=== PATIENT | male | born 1940 | race Caucasian/White ===

== ENCOUNTER 2016-12-10 09:56 | Observation (INO) | payer MEDICARE, BC ==
[2016-12-10] MEDS ORDERED: Indomethacin 50 MG Cap PO STA (10:44)
[2016-12-10] MEDS ORDERED: Ketorolac 30 MG/ML SDV IM ONE (10:45)
[2016-12-10] MEDS ORDERED: Indomethacin 25 MG Cap ONE ×2 (10:49→17:42)
--- NOTE | 2016-12-10 10:55 | EDM.PDOC ---
ED HPI GENERAL MEDICAL PROBLEM - General Chief Complaint: Upper Extremity Injury/Pain Stated Complaint: Right forearm and hand pain Time Seen by Provider: 12/10/16 10:30 Source of Information: Reports: Patient, Family History Limitations: Reports: No Limitations - History of Present Illness INITIAL COMMENTS - FREE TEXT/NARRATIVE: This is a 76yo M here for right forearm and wrist pain since yesterday. Patient states the pain has gotten worse. The pain started at a 3/10 yesterday and now a 7-8/10. Patient denies any prior right forearm or wrist pain and denies prior history of gout. Patient does have a history of CHF and DM with peripheral neuropathy. Patient denies any chest pain or sob. There is swelling of the right wrist and warmth. No fall or injury per patient. Onset: Gradual Duration: Day(s):, Getting Worse Location: Reports: Upper Extremity, Right Quality: Reports: Ache Severity: Moderate Improves with: Reports: None Worsens with: Reports: None Associated Symptoms: Reports: No Other Symptoms Right Arm Pain Score (Numeric/FACES): 8 - Related Data Allergies Allergy/AdvReac Type Severity Reaction Status Date / Time morphine Allergy Intermediate Other Verified 12/10/16 10:40 Home Meds: Home Meds Ramipril 10 mg PO DAILY 03/04/16 [History] Simvastatin 20 mg PO QPM 03/04/16 [History] Isosorbide Mononitrate [Imdur] 30 mg PO DAILY tab.er 03/10/16 [Rx] Aspirin [Halfprin] 81 mg PO DAILY 03/24/16 [History] Furosemide [Lasix] 80 mg PO DAILY 04/24/16 [History] Carvedilol [Carvedilol] 12.5 mg PO BIDMEALS 12/10/16 [History] Furosemide [Furosemide] 40 mg PO DAILY@1600 12/10/16 [History] Metolazone [Metolazone] 2.5 mg PO ASDIRECTED 12/10/16 [History] Potassium Chloride [Klor-Con M20] 40 meq PO DAILY 12/10/16 [History] Potassium Chloride [Klor-Con M20] 60 meq PO QPM 12/10/16 [History] Past Medical History HEENT History: Reports: Cataract Cardiovascular History: Reports: CAD, Heart Failure, Stents Respiratory History: Reports: SOB Genitourinary History: Reports: Other (See Below) Other Genitourinary History: frequent urination, urgency Musculoskeletal History: Reports: Arthritis Neurological History: Reports: CVA Endocrine/Metabolic History: Reports: Diabetes, Type II - Infectious Disease History Infectious Disease History: Reports: Measles - Past Surgical History HEENT Surgical History: Reports: Cataract Surgery Musculoskeletal Surgical History: Reports: Hip Replacement, Other (See Below) Social & Family History - Family History Family Medical History: Unobtainable Cardiac: Reports: Heart Failure Respiratory: Reports: None GI: Reports: None : Reports: None Psychiatric: Reports: None Endocrine/Metabolic: Reports: Diabetes, type II Hematologic: Reports: None Dermatologic: Reports: None Oncologic: Reports: Lung - Tobacco Use Smoking Status *Q: Former Smoker Years of Tobacco use: 10 Used Tobacco, but Quit: Yes Month Tobacco Last Used: 1 Second Hand Smoke Exposure: No - Caffeine Use Caffeine Use: Reports: Coffee, Tea - Alcohol Use Days Per Week of Alcohol Use: 7 Number of Drinks Per Day: 2 Total Drinks Per Week: 14 - Recreational Drug Use Recreational Drug Use: No Review of Systems - Review of Systems Review Of Systems: ROS reveals no pertinent complaints other than HPI. ED EXAM, GENERAL - Physical Exam Exam: See Below Exam Limited By: No Limitations General Appearance: Alert, WD/WN, Mild Distress Eye Exam: Bilateral Eye: EOMI, PERRL Nose: Normal Inspection Throat/Mouth: Normal Inspection Head: Atraumatic, Normocephalic Neck: Normal Inspection, Supple, Non-Tender Respiratory/Chest: No Respiratory Distress, Lungs Clear, Normal Breath Sounds Cardiovascular: Normal Peripheral Pulses, Regular Rate, Rhythm Peripheral Pulses: 2+: Dorsalis Pedis (L), Dorsalis Pedis (R) GI/Abdominal: Normal Bowel Sounds Extremities: Joint Swelling, Arm Pain (right), Increased Warmth Neurological: Alert, Oriented, CN II-XII Intact Psychiatric: Normal Affect, Normal Mood Skin Exam: Warm, Dry, Intact Course - Vital Signs Last Recorded V/S: Last Vital Signs Temp 36.7 C 12/10/16 10:15 Pulse 57 L 12/10/16 11:09 Resp 20 12/10/16 10:15 BP 76/46 L 12/10/16 11:09 Pulse Ox 96 12/10/16 10:15 - Orders/Labs/Meds Orders: Active Orders 24 hr Category Date Time Status Patient Status [ADT] Routine ADT 12/10/16 11:54 Ordered Oxygen Therapy [RC] PRN Care 12/10/16 11:54 Ordered Vital Signs [RC] Q4H Care 12/10/16 11:54 Ordered Regular Diet [DIET] Diet 12/10/16 Dinner Ordered Acetaminophen [Tylenol] Med 12/10/16 11:54 Ordered 650 mg PO Q4H PRN Aspirin [Halfprin] Med 12/11/16 08:00 Ordered 81 mg PO DAILY Carvedilol [Coreg] Med 12/10/16 17:00 Ordered 12.5 mg PO BIDMEALS Furosemide [Lasix] Med 12/10/16 16:00 Ordered 40 mg PO DAILY@1600 Furosemide [Lasix] Med 12/11/16 08:00 Ordered 80 mg PO DAILY Isosorbide Mononitrate [Imdur] Med 12/11/16 08:00 Ordered 30 mg PO DAILY Metolazone [Metolazone] Med 12/10/16 12:15 Ordered 2.5 mg PO ASDIRECTED Potassium Chloride 40 meq Med 12/10/16 12:00 Ordered Sodium Chloride 0.9% [Normal Saline] 1,000 ml IV ASDIRECTED Simvastatin [Zocor] Med 12/10/16 20:00 Ordered 20 mg PO QPM Sodium Chloride 0.9% [Saline Flush] Med 12/10/16 12:00 Ordered 10 ml FLUSH ASDIRECTED PRN Peripheral IV Insertion Adult [OM.PC] Routine Oth 12/10/16 12:00 Ordered Medication Orders Acetaminophen (Tylenol) 650 mg PO Q4H PRN PRN Reason: analgesia/fever Aspirin (Halfprin) 81 mg PO DAILY CYNDI Carvedilol (Coreg) 12.5 mg PO BIDMEALS CYNDI Furosemide (Lasix) 40 mg PO DAILY@1600 CYNDI Furosemide (Lasix) 80 mg PO DAILY CYNDI Potassium Chloride 40 meq/ (Sodium Chloride) 1,020 mls @ 200 mls/hr IV ASDIRECTED CYNDI Isosorbide Mononitrate (Imdur) 30 mg PO DAILY CYNDI Non-Formulary Medication (Metolazone [Metolazone]) 2.5 mg PO ASDIRECTED CYNDI Simvastatin (Zocor) 20 mg PO QPM CYNDI Sodium Chloride (Saline Flush) 10 ml FLUSH ASDIRECTED PRN PRN Reason: Keep Vein Open Labs: Laboratory Tests 12/10/16 12/10/16 12/10/16 Range/Units 10:42 10:42 10:43 WBC 12.4 H D (4.0-11.0) K/uL RBC 4.40 L (4.50-6.50) M/uL Hgb 12.9 L (13.0-18.0) g/dL Hct 38.0 L (40.0-54.0) % MCV 86 (76-96) fL MCH 29.3 (27.0-32.0) pg MCHC 33.9 (31.0-35.0) g/dL RDW 14.1 (11.0-16.0) % Plt Count 236 D (150-400) K/uL MPV 10.1 H (6.0-10.0) fL Neut % (Auto) 76.0 H (45.0-70.0) % Lymph % (Auto) 14.7 L (20.0-40.0) % [place] % (Auto) 8.7 (3.0-10.0) % Eos % (Auto) 0.4 L (1.0-5.0) % Baso % (Auto) 0.2 (0.0-0.5) % Neut # (Auto) 9.42 H (2.00-7.50) K/uL Lymph # (Auto) 1.82 (1.50-4.00) K/uL [place] # (Auto) 1.08 H (0.20-0.80) K/uL Eos # (Auto) 0.05 (0.04-0.40) K/uL Baso # (Auto) 0.02 (0.02-0.10) K/uL Sodium 140 (136-145) mmol/L Potassium 2.6 L* D (3.5-5.1) mmol/L Chloride 99 (98-107) mmol/L Carbon Dioxide 33.9 H (21.0-32.0) mmol/L Anion Gap 9.7 (5.0-15.0) mmol/L BUN 45 H D (8-26) mg/dL Creatinine 2.15 H D (0.70-1.30) mg/dL Est Cr Clr Drug Dosing TNP Estimated GFR (MDRD) 30 L (>60) MLS/MIN BUN/Creatinine Ratio 20.9 (6-25) Glucose 164 H D (74-100) mg/dL Uric Acid 15.2 H (2.6-7.2) mg/dL Calcium 9.1 (8.5-10.1) mg/dL Troponin I 0.011 D (0.000-0.060) ng/mL B-Natriuretic Peptide 1527 H D (0-450) pg/mL TSH, Ultra Sensitive 1.841 (0.358-3.740) uIU/mL Meds: Medications Generic Name Dose Route Start Last Admin Trade Name Freq PRN Reason Stop Dose Admin Acetaminophen 650 mg 12/10/16 11:54 Tylenol PO Q4H PRN analgesia/fever Aspirin 81 mg 12/11/16 08:00 Halfprin PO DAILY CYNDI Carvedilol 12.5 mg 12/10/16 17:00 Coreg PO BIDMEALS CYNDI Furosemide 40 mg 12/10/16 16:00 Lasix PO DAILY@1600 CYNDI Furosemide 80 mg 12/11/16 08:00 Lasix PO DAILY CYNDI Potassium Chloride 40 meq/ 1,020 mls @ 200 mls/hr 12/10/16 12:00 Sodium Chloride IV ASDIRECTED CYNDI Isosorbide Mononitrate 30 mg 12/11/16 08:00 Imdur PO DAILY CYNDI Non-Formulary Medication 2.5 mg 12/10/16 12:15 Metolazone [Metolazone] PO ASDIRECTED CYNDI Simvastatin 20 mg 12/10/16 20:00 Zocor PO QPM CYNDI Sodium Chloride 10 ml 12/10/16 12:00 Saline Flush FLUSH ASDIRECTED PRN Keep Vein Open Discontinued Medications Generic Name Dose Route Start Last Admin Trade Name Freq PRN Reason Stop Dose Admin Indomethacin 50 mg 12/10/16 10:44 12/10/16 10:51 Indocin PO 12/10/16 10:45 50 mg NOW STA Administration Indomethacin Confirm 12/10/16 10:49 12/10/16 10:58 Indocin Administered 12/10/16 10:50 Not Given Dose 50 mg .ROUTE .STK-MED ONE Ketorolac Tromethamine 30 mg 12/10/16 10:45 12/10/16 10:53 Toradol IM 12/10/16 10:46 30 mg ONETIME ONE Administration Methylprednisolone Sodium Succinate 125 mg 12/10/16 12:00 Solu-Medrol IVPUSH 12/10/16 12:01 ONETIME ONE Departure - Departure Time of Disposition: 12:08 Disposition: Refer to Observation Condition: Good Clinical Impression: Hypokalemia, Gout attack, Chronic renal disease, CHF, Congestive heart failure , CHF (congestive heart failure) - Discharge Information Referrals: PCP,None [Primary Care Provider] - Forms: ED Department Discharge - Problem List & Annotations (1) Hypokalemia SNOMED Code(s): 15978934 Code(s): E87.6 - HYPOKALEMIA Status: Acute Priority: High Current Visit : Yes (2) Chronic renal disease SNOMED Code(s): 810003057 Code(s): N18.9 - CHRONIC KIDNEY DISEASE, UNSPECIFIED Status: Chronic Priority: High Current Visit: Yes (3) Gout attack SNOMED Code(s): 06546505, 05777081 Code(s): M10.9 - GOUT, UNSPECIFIED Status: Acute Priority: High Current Visit: Yes Qualifiers: Gout site: wrist Encounter type: initial encounter Laterality: right (4) CHF (congestive heart failure) SNOMED Code(s): 13625622 Code(s): I50.9 - HEART FAILURE, UNSPECIFIED Status: Chronic Priority: High Current Visit: No Qualifiers: Congestive heart failure type: diastolic Congestive heart failure chronicity: chronic Qualified Code(s): I50.32 - Chronic diastolic (congestive ) heart failure - Problem List Review Problem List Initiated/Reviewed/Updated: Yes - My Orders Last 24 Hours: My Active Orders 12/10/16 11:54 Patient Status [ADT] Routine Oxygen Therapy [RC] PRN Vital Signs [RC] Q4H Acetaminophen [Tylenol] 650 mg PO Q4H PRN 12/10/16 12:00 Potassium Chloride 40 meq Sodium Chloride 0.9% [Normal Saline] 1,000 ml IV ASDIRECTED Sodium Chloride 0.9% [Saline Flush] 10 ml FLUSH ASDIRECTED PRN Peripheral IV Insertion Adult [OM.PC] Routine 12/10/16 12:15 Metolazone [Metolazone] 2.5 mg PO ASDIRECTED 12/10/16 16:00 Furosemide [Lasix] 40 mg PO DAILY@1600 12/10/16 17:00 Carvedilol [Coreg] 12.5 mg PO BIDMEALS 12/10/16 20:00 Simvastatin [Zocor] 20 mg PO QPM 12/10/16 Dinner Regular Diet [DIET] 12/11/16 08:00 Aspirin [Halfprin] 81 mg PO DAILY Furosemide [Lasix] 80 mg PO DAILY Isosorbide Mononitrate [Imdur] 30 mg PO DAILY - Assessment/Plan Last 24 Hours: My Active Orders 12/10/16 11:54 Patient Status [ADT] Routine Oxygen Therapy [RC] PRN Vital Signs [RC] Q4H Acetaminophen [Tylenol] 650 mg PO Q4H PRN 12/10/16 12:00 Potassium Chloride 40 meq Sodium Chloride 0.9% [Normal Saline] 1,000 ml IV ASDIRECTED Sodium Chloride 0.9% [Saline Flush] 10 ml FLUSH ASDIRECTED PRN Peripheral IV Insertion Adult [OM.PC] Routine 12/10/16 12:15 Metolazone [Metolazone] 2.5 mg PO ASDIRECTED 12/10/16 16:00 Furosemide [Lasix] 40 mg PO DAILY@1600 12/10/16 17:00 Carvedilol [Coreg] 12.5 mg PO BIDMEALS 12/10/16 20:00 Simvastatin [Zocor] 20 mg PO QPM 12/10/16 Dinner Regular Diet [DIET] 12/11/16 08:00 Aspirin [Halfprin] 81 mg PO DAILY Furosemide [Lasix] 80 mg PO DAILY Isosorbide Mononitrate [Imdur] 30 mg PO DAILY Plan: Patient to be placed in observation. We will hydrate with NS+KCl for hypokalemia and repeat labs in am. Start one IV does of solumedrol for gout attack and start indomethacin while monitoring renal function. Recheck renal function in am with fluid hydration and monitor for worsening CHF.
[2016-12-10] MEDS ORDERED: Acetaminophen 325 MG Tab PO PRN (11:54)
[2016-12-10] MEDS ORDERED: Sodium Chloride 0.9% 10 ML Syringe FLUSH PRN (12:00)
[2016-12-10] MEDS ORDERED: methylPREDNISolone Sodium Succinate 125 MG/2 ML SDV IVPUSH ONE (12:00)
[2016-12-10] MEDS ORDERED: METOLAZONE 2.5 MG PO SCH (12:15)
[2016-12-10] MEDS ORDERED: D5 1/2 NS w/ 40 mEq/L KCl 1,000 ML ONE (13:06)
[2016-12-10] MEDS: Carvedilol 12.5 MG Tab PO SCH (16:56)
[2016-12-10] MEDS: Furosemide 40 MG Tab PO SCH (16:56)
[2016-12-10] MEDS: Indomethacin 50 MG Cap PO SCH (17:43)
[2016-12-10] MEDS: Sodium Chloride 0.9% with KCl 1,000 ML ONE (18:45)
[2016-12-10] MEDS: Simvastatin 20 MG Tab PO SCH (19:46)
[2016-12-11] MEDS: Sodium Chloride 0.9% with KCl 1,000 ML ONE (03:16)
[2016-12-11] MEDS: Carvedilol 12.5 MG Tab PO SCH ×2 (07:53→16:47)
[2016-12-11] MEDS: Aspirin 81 MG Tab.EC PO SCH (07:56)
[2016-12-11] MEDS: Isosorbide Mononitrate 30 MG Tab.ER PO SCH (07:56)
[2016-12-11] MEDS ORDERED: Metolazone 5 MG Tab PO SCH (08:00)
[2016-12-11] MEDS ORDERED: Furosemide 40 MG Tab PO SCH (08:00)
[2016-12-11] MEDS ORDERED: Indomethacin 25 MG Cap ONE (08:05)
[2016-12-11] MEDS: Indomethacin 50 MG Cap PO SCH (08:06)
[2016-12-11] MEDS: Potassium Chloride 20 MEQ Tab.ER PO SCH (09:03)
[2016-12-11] MEDS: Indomethacin 25 MG Cap PO SCH ×2 (11:56→17:59)
[2016-12-11] MEDS: Sodium Chloride 0.9% with KCl 1,000 ML IV SCH ×2 (13:43→23:17)
[2016-12-11] MEDS: Furosemide 40 MG Tab PO SCH (16:47)
[2016-12-11] MEDS ORDERED: Potassium Chloride 20 MEQ Tab.ER PO SCH (20:00)
[2016-12-11] MEDS: Simvastatin 20 MG Tab PO SCH (20:41)
[2016-12-12] MEDS: Carvedilol 12.5 MG Tab PO SCH (07:50)
[2016-12-12] MEDS: Aspirin 81 MG Tab.EC PO SCH (07:51)
[2016-12-12] MEDS: Isosorbide Mononitrate 30 MG Tab.ER PO SCH (07:52)
[2016-12-12] MEDS: Potassium Chloride 20 MEQ Tab.ER PO SCH (07:54)
[2016-12-12 07:56] VITALS: BP 170/76
[2016-12-12] MEDS ORDERED: Bumetanide 2.5 MG/10 ML MDV IVPUSH SCH (08:00)
[2016-12-12] MEDS: Indomethacin 25 MG Cap PO SCH (08:05)
--- NOTE | 2016-12-12 09:33 | PCM.PN ---
- General Info Date of Service: 12/11/16 Functional Status: Reports: Pain Controlled, Tolerating Diet, Ambulating - Review of Systems General: Reports: No Symptoms HEENT: Reports: No Symptoms Pulmonary: Reports: No Symptoms Cardiovascular: Reports: Edema (1+) Gastrointestinal: Reports: No Symptoms Genitourinary: Reports: No Symptoms Musculoskeletal: Reports: Joint Pain Skin: Reports: No Symptoms Neurological: Reports: Weakness (generalized) - Patient Data Vitals - Most Recent: Last Vital Signs Temp 36.1 C 12/12/16 08:01 Pulse 56 L 12/12/16 07:50 Resp 20 12/12/16 08:01 BP 170/76 H 12/12/16 07:52 Pulse Ox 98 12/12/16 08:01 Weight - Most Recent: 94.347 kg Lab Results Last 24 Hours: Laboratory Results - last 24 hr 12/12/16 12/12/16 Range/Units 07:10 07:10 WBC 13.6 H (4.0-11.0) K/uL RBC 3.91 L (4.50-6.50) M/uL Hgb 11.6 L (13.0-18.0) g/dL Hct 34.1 L (40.0-54.0) % MCV 87 (76-96) fL MCH 29.7 (27.0-32.0) pg MCHC 34.0 (31.0-35.0) g/dL RDW 14.1 (11.0-16.0) % Plt Count 191 (150-400) K/uL MPV 10.5 H (6.0-10.0) fL Neut % (Auto) 74.5 H (45.0-70.0) % Lymph % (Auto) 19.2 L (20.0-40.0) % [place] % (Auto) 5.7 (3.0-10.0) % Eos % (Auto) 0.5 L (1.0-5.0) % Baso % (Auto) 0.1 (0.0-0.5) % Neut # (Auto) 10.11 H (2.00-7.50) K/uL Lymph # (Auto) 2.60 (1.50-4.00) K/uL [place] # (Auto) 0.78 (0.20-0.80) K/uL Eos # (Auto) 0.07 (0.04-0.40) K/uL Baso # (Auto) 0.01 L (0.02-0.10) K/uL Sodium 144 (136-145) mmol/L Potassium 3.2 L (3.5-5.1) mmol/L Chloride 107 (98-107) mmol/L Carbon Dioxide 26.6 (21.0-32.0) mmol/L Anion Gap 13.6 (5.0-15.0) mmol/L BUN 52 H* (8-26) mg/dL Creatinine 2.03 H (0.70-1.30) mg/dL Est Cr Clr Drug Dosing 31.94 mL/min Estimated GFR (MDRD) 32 L (>60) MLS/MIN BUN/Creatinine Ratio 25.6 H (6-25) Glucose 118 H (74-100) mg/dL Calcium 8.4 L (8.5-10.1) mg/dL Med Orders - Current: Current Medications Acetaminophen (Tylenol) 650 mg PO Q4H PRN PRN Reason: analgesia/fever Last Admin: 12/10/16 19:51 Dose: 650 mg Aspirin (Halfprin) 81 mg PO DAILY [facility] Last Admin: 12/12/16 07:51 Dose: 81 mg Bumetanide (Bumex) 2 mg IVPUSH DAILY [facility] Last Admin: 12/12/16 07:41 Dose: 2 mg Carvedilol (Coreg) 12.5 mg PO BIDMEALS [facility] Last Admin: 12/12/16 07:50 Dose: 12.5 mg Furosemide (Lasix) 40 mg PO DAILY@1600 [facility] Last Admin: 12/11/16 16:47 Dose: 40 mg Furosemide (Lasix) 80 mg PO DAILY [facility] Last Admin: 12/11/16 07:56 Dose: 80 mg Potassium Chloride/Sodium Chloride (Normal Saline With 40 Meq Kcl) 1,000 mls @ 50 mls/hr IV ASDIRECTED [facility] Last Infusion: 12/11/16 23:18 Dose: 50 mls/hr Indomethacin (Indocin) 50 mg PO TIDMEALS [facility] Last Admin: 12/12/16 08:05 Dose: 50 mg Isosorbide Mononitrate (Imdur) 30 mg PO DAILY [facility] Last Admin: 12/12/16 07:52 Dose: 30 mg Metolazone (Zaroxolyn) 2.5 mg PO MoWeFr@0800 [facility] Last Admin: 12/11/16 07:57 Dose: 2.5 mg Potassium Chloride (Klor-Con M20) 40 meq PO DAILY [facility] Last Admin: 12/12/16 07:54 Dose: 40 meq Potassium Chloride (Klor-Con M20) 60 meq PO QPM [facility] Last Admin: 12/11/16 20:41 Dose: 60 meq Simvastatin (Zocor) 20 mg PO QPM [facility] Last Admin: 12/11/16 20:41 Dose: 20 mg Sodium Chloride (Saline Flush) 10 ml FLUSH ASDIRECTED PRN PRN Reason: Keep Vein Open Discontinued Medications Potassium Chloride 40 meq/ (Sodium Chloride) 1,020 mls @ 200 mls/hr IV ASDIRECTED [facility] Last Admin: 12/10/16 18:29 Dose: 200 mls/hr Potassium Chloride/Dextrose/Sod Cl (D5 1/2 Ns W/ 40 Meq/L Kcl) Confirm Administered Dose 1,000 mls @ as directed .ROUTE .STK-MED ONE Stop: 12/10/16 13:07 Last Admin: 12/10/16 13:16 Dose: Not Given Potassium Chloride/Sodium Chloride (Normal Saline With 40 Meq Kcl) Confirm Administered Dose 1,000 mls @ as directed .ROUTE .STK-MED ONE Stop: 12/10/16 18:12 Last Admin: 12/10/16 18:45 Dose: Not Given Potassium Chloride 40 meq/ (Sodium Chloride) 1,020 mls @ 100 mls/hr IV ASDIRECTED [facility] Stop: 12/11/16 23:59 Last Admin: 12/11/16 03:19 Dose: 100 mls/hr Indomethacin (Indocin) 50 mg PO NOW [facility] Stop: 12/10/16 10:45 Last Admin: 12/10/16 10:51 Dose: 50 mg Indomethacin (Indocin) Confirm Administered Dose 50 mg .ROUTE .STK-MED ONE Stop: 12/10/16 10:50 Last Admin: 12/10/16 10:58 Dose: Not Given Indomethacin (Indocin) 50 mg PO TIDMEALS [facility] Last Admin: 12/11/16 08:06 Dose: 50 mg Indomethacin (Indocin) Confirm Administered Dose 50 mg .ROUTE .STK-MED ONE Stop: 12/10/16 17:43 Last Admin: 12/10/16 17:44 Dose: Not Given Indomethacin (Indocin) Confirm Administered Dose 50 mg .ROUTE .STK-MED ONE Stop: 12/11/16 08:06 Last Admin: 12/11/16 16:43 Dose: Not Given Ketorolac Tromethamine (Toradol) 30 mg IM ONETIME ONE Stop: 12/10/16 10:46 Last Admin: 12/10/16 10:53 Dose: 30 mg Methylprednisolone Sodium Succinate (Solu-Medrol) 125 mg IVPUSH ONETIME ONE Stop: 12/10/16 12:01 Last Admin: 12/10/16 13:15 Dose: 125 mg Non-Formulary Medication (Metolazone [Metolazone]) 2.5 mg PO ASDIRECTED CYNDI - Exam General: Alert, Oriented, Cooperative HEENT: Pupils Equal, Pupils Reactive, EOMI Neck: Supple Lungs: Clear to Auscultation, Normal Respiratory Effort Cardiovascular: Regular Rate, Regular Rhythm GI/Abdominal Exam: Normal Bowel Sounds Extremities: Pedal Edema (1+) Peripheral Pulses: 2+: Dorsalis Pedis (L), Dorsalis Pedis (R) Skin: Warm, Dry, Intact Neurological: No New Focal Deficit Psy/Mental Status: Alert, Normal Affect, Normal Mood - Problem List & Annotations (1) Hypokalemia SNOMED Code(s): 76842828 Code(s): E87.6 - HYPOKALEMIA Status: Chronic Priority: High Current Visit: Yes (2) Chronic renal disease SNOMED Code(s): 723230558 Code(s): N18.9 - CHRONIC KIDNEY DISEASE, UNSPECIFIED Status: Chronic Priority: High Current Visit: Yes (3) Gout attack SNOMED Code(s): 04548258, 05671238 Code(s): M10.9 - GOUT, UNSPECIFIED Status: Acute Priority: High Current Visit: Yes Qualifiers: Gout site: wrist Encounter type: initial encounter Laterality: right (4) CHF (congestive heart failure) SNOMED Code(s): 32323492 Code(s): I50.9 - HEART FAILURE, UNSPECIFIED Status: Chronic Priority: High Current Visit: No Qualifiers: Congestive heart failure type: diastolic Congestive heart failure chronicity: chronic Qualified Code(s): I50.32 - Chronic diastolic (congestive ) heart failure - Problem List Review Problem List Initiated/Reviewed/Updated: Yes - My Orders Last 24 Hours: My Active Orders 12/11/16 12:00 Indomethacin [Indocin] 50 mg PO TIDMEALS 12/11/16 20:00 Potassium Chloride [Klor-Con M20] 60 meq PO QPM 12/12/16 08:00 Bumetanide [Bumex] 2 mg IVPUSH DAILY 12/12/16 09:17 Ready for Discharge [RC] PER UNIT ROUTINE - Plan Plan:: Patient counseled on continued potassium intake and restart oral potassium pills. Patient states the pain of the right wrist has improved greatly but the swelling continues. Patient denies other concerns at this time and we will f/u labs in am.
--- NOTE | 2016-12-12 09:36 | PCM.DCSUM1 ---
Discharge Summary - Discharge Data Discharge Date: 12/12/16 Discharge Disposition: Home, Self-Care 01 Condition: Good - Discharge Diagnosis/Problem(s) (1) Hypokalemia SNOMED Code(s): 47464318 ICD Code: E87.6 - HYPOKALEMIA Status: Chronic Priority: High Current Visit: Yes (2) Chronic renal disease SNOMED Code(s): 365730417 ICD Code: N18.9 - CHRONIC KIDNEY DISEASE, UNSPECIFIED Status: Chronic Priority: High Current Visit: Yes (3) Gout attack SNOMED Code(s): 42998168, 93814095 ICD Code: M10.9 - GOUT, UNSPECIFIED Status: Acute Priority: High Current Visit: Yes Qualifiers: Gout site: wrist Encounter type: initial encounter Laterality: right (4) CHF (congestive heart failure) SNOMED Code(s): 32780859 ICD Code: I50.9 - HEART FAILURE, UNSPECIFIED Status: Chronic Priority: High Current Visit: No Qualifiers: Congestive heart failure type: diastolic Congestive heart failure chronicity: chronic Qualified Code(s): I50.32 - Chronic diastolic (congestive ) heart failure - Patient Instructions Diet: Heart Healthy Diet Diet, Other: low purine diet Activity: As Tolerated Showering/Bathing: May Shower Notify Provider of: Fever - Discharge Plan Prescriptions/Med Rec: Allopurinol [Zyloprim] 100 mg PO BID 30 Days #60 tablet Indomethacin [Indocin] 50 mg PO TIDMEALS #30 cap Home Medications: Home Meds Ramipril 10 mg PO DAILY 03/04/16 [History] Simvastatin 20 mg PO QPM 03/04/16 [History] Isosorbide Mononitrate [Imdur] 30 mg PO DAILY tab.er 03/10/16 [Rx] Aspirin [Halfprin] 81 mg PO DAILY 03/24/16 [History] Furosemide [Lasix] 80 mg PO DAILY 04/24/16 [History] Carvedilol 12.5 mg PO BIDMEALS 12/10/16 [History] Furosemide 40 mg PO DAILY@1600 12/10/16 [History] Metolazone 2.5 mg PO ASDIRECTED 12/10/16 [History] Potassium Chloride [Klor-Con M20] 40 meq PO DAILY 12/10/16 [History] Potassium Chloride [Klor-Con M20] 60 meq PO QPM 12/10/16 [History] Allopurinol [Zyloprim] 100 mg PO BID 30 Days #60 tablet 12/12/16 [Rx] Indomethacin [Indocin] 50 mg PO BID 12/12/16 [History] Indomethacin [Indocin] 50 mg PO TIDMEALS #30 cap 12/12/16 [Rx] Patient Handouts: Allopurinol tablets, Low-Purine Diet, Gout, [id number], Indomethacin capsules Forms: ED Department Discharge Referrals: PCP,None [Primary Care Provider] - - Discharge Summary/Plan Comment Discharge Summary/Plan Comment: Counseled on gout diet. Discussed start of allopurinol and effects on kidney. Patient agrees to f/u renal function testing and side effects in clinic in 3 weeks. Patient will be restarted on furosemide on discharge. Indomethacin to be used as directed sparingly for symptomatic relief. Discussed use of allopurinol and f/u. Patient understands risks of renal dysfunction and side effects of allopurinol with renal function and will f/u as directed. Discussed hypokalemia and recheck of labs in 3 weeks or as needed if any concerns or symptoms. - Patient Data Vitals - Most Recent: Last Vital Signs Temp 36.1 C 12/12/16 08:01 Pulse 56 L 12/12/16 07:50 Resp 20 12/12/16 08:01 BP 170/76 H 12/12/16 07:52 Pulse Ox 98 12/12/16 08:01 Weight - Most Recent: 94.347 kg Lab Results - Last 24 hrs: Laboratory Results - last 24 hr 12/12/16 12/12/16 Range/Units 07:10 07:10 WBC 13.6 H (4.0-11.0) K/uL RBC 3.91 L (4.50-6.50) M/uL Hgb 11.6 L (13.0-18.0) g/dL Hct 34.1 L (40.0-54.0) % MCV 87 (76-96) fL MCH 29.7 (27.0-32.0) pg MCHC 34.0 (31.0-35.0) g/dL RDW 14.1 (11.0-16.0) % Plt Count 191 (150-400) K/uL MPV 10.5 H (6.0-10.0) fL Neut % (Auto) 74.5 H (45.0-70.0) % Lymph % (Auto) 19.2 L (20.0-40.0) % Grimes % (Auto) 5.7 (3.0-10.0) % Eos % (Auto) 0.5 L (1.0-5.0) % Baso % (Auto) 0.1 (0.0-0.5) % Neut # (Auto) 10.11 H (2.00-7.50) K/uL Lymph # (Auto) 2.60 (1.50-4.00) K/uL Grimes # (Auto) 0.78 (0.20-0.80) K/uL Eos # (Auto) 0.07 (0.04-0.40) K/uL Baso # (Auto) 0.01 L (0.02-0.10) K/uL Sodium 144 (136-145) mmol/L Potassium 3.2 L (3.5-5.1) mmol/L Chloride 107 (98-107) mmol/L Carbon Dioxide 26.6 (21.0-32.0) mmol/L Anion Gap 13.6 (5.0-15.0) mmol/L BUN 52 H* (8-26) mg/dL Creatinine 2.03 H (0.70-1.30) mg/dL Est Cr Clr Drug Dosing 31.94 mL/min Estimated GFR (MDRD) 32 L (>60) MLS/MIN BUN/Creatinine Ratio 25.6 H (6-25) Glucose 118 H (74-100) mg/dL Calcium 8.4 L (8.5-10.1) mg/dL Med Orders - Current: Current Medications Acetaminophen (Tylenol) 650 mg PO Q4H PRN PRN Reason: analgesia/fever Last Admin: 12/10/16 19:51 Dose: 650 mg Aspirin (Halfprin) 81 mg PO DAILY [facility] Last Admin: 12/12/16 07:51 Dose: 81 mg Bumetanide (Bumex) 2 mg IVPUSH DAILY [facility] Last Admin: 12/12/16 07:41 Dose: 2 mg Carvedilol (Coreg) 12.5 mg PO BIDMEALS [facility] Last Admin: 12/12/16 07:50 Dose: 12.5 mg Furosemide (Lasix) 40 mg PO DAILY@1600 [facility] Last Admin: 12/11/16 16:47 Dose: 40 mg Furosemide (Lasix) 80 mg PO DAILY [facility] Last Admin: 12/11/16 07:56 Dose: 80 mg Potassium Chloride/Sodium Chloride (Normal Saline With 40 Meq Kcl) 1,000 mls @ 50 mls/hr IV ASDIRECTED [facility] Last Infusion: 12/11/16 23:18 Dose: 50 mls/hr Indomethacin (Indocin) 50 mg PO TIDMEALS [facility] Last Admin: 12/12/16 08:05 Dose: 50 mg Isosorbide Mononitrate (Imdur) 30 mg PO DAILY [facility] Last Admin: 12/12/16 07:52 Dose: 30 mg Metolazone (Zaroxolyn) 2.5 mg PO MoWeFr@0800 [facility] Last Admin: 12/11/16 07:57 Dose: 2.5 mg Potassium Chloride (Klor-Con M20) 40 meq PO DAILY [facility] Last Admin: 12/12/16 07:54 Dose: 40 meq Potassium Chloride (Klor-Con M20) 60 meq PO QPM [facility] Last Admin: 12/11/16 20:41 Dose: 60 meq Simvastatin (Zocor) 20 mg PO QPM [facility] Last Admin: 12/11/16 20:41 Dose: 20 mg Sodium Chloride (Saline Flush) 10 ml FLUSH ASDIRECTED PRN PRN Reason: Keep Vein Open Discontinued Medications Potassium Chloride 40 meq/ (Sodium Chloride) 1,020 mls @ 200 mls/hr IV ASDIRECTED [facility] Last Admin: 12/10/16 18:29 Dose: 200 mls/hr Potassium Chloride/Dextrose/Sod Cl (D5 1/2 Ns W/ 40 Meq/L Kcl) Confirm Administered Dose 1,000 mls @ as directed .ROUTE .STK-MED ONE Stop: 12/10/16 13:07 Last Admin: 12/10/16 13:16 Dose: Not Given Potassium Chloride/Sodium Chloride (Normal Saline With 40 Meq Kcl) Confirm Administered Dose 1,000 mls @ as directed .ROUTE .STK-MED ONE Stop: 12/10/16 18:12 Last Admin: 12/10/16 18:45 Dose: Not Given Potassium Chloride 40 meq/ (Sodium Chloride) 1,020 mls @ 100 mls/hr IV ASDIRECTED [facility] Stop: 12/11/16 23:59 Last Admin: 12/11/16 03:19 Dose: 100 mls/hr Indomethacin (Indocin) 50 mg PO NOW STA Stop: 12/10/16 10:45 Last Admin: 12/10/16 10:51 Dose: 50 mg Indomethacin (Indocin) Confirm Administered Dose 50 mg .ROUTE .STK-MED ONE Stop: 12/10/16 10:50 Last Admin: 12/10/16 10:58 Dose: Not Given Indomethacin (Indocin) 50 mg PO TIDMEALS CYNDI Last Admin: 12/11/16 08:06 Dose: 50 mg Indomethacin (Indocin) Confirm Administered Dose 50 mg .ROUTE .STK-MED ONE Stop: 12/10/16 17:43 Last Admin: 12/10/16 17:44 Dose: Not Given Indomethacin (Indocin) Confirm Administered Dose 50 mg .ROUTE .STK-MED ONE Stop: 12/11/16 08:06 Last Admin: 12/11/16 16:43 Dose: Not Given Ketorolac Tromethamine (Toradol) 30 mg IM ONETIME ONE Stop: 12/10/16 10:46 Last Admin: 12/10/16 10:53 Dose: 30 mg Methylprednisolone Sodium Succinate (Solu-Medrol) 125 mg IVPUSH ONETIME ONE Stop: 12/10/16 12:01 Last Admin: 12/10/16 13:15 Dose: 125 mg Non-Formulary Medication (Metolazone [Metolazone]) 2.5 mg PO ASDIRECTED CYNDI *Q Meaningful Use (DIS) - VTE *Q VTE Criteria *Q: - Stroke *Q Stroke Criteria *Q: - AMI *Q AMI Criteria *Q:
== END 2016-12-12 10:45 | disposition home or self-care (01) ==
LOC: LB.ED 09:56 → LB.MS 11:54 → UNDOADMOB 12:00 → LB.MS 12:00
PROVIDERS: ADMIT Family Medicine; ATTEND Family Medicine
DX: M10.9 Gout, unspecified (principal); E87.6 Hypokalemia; N18.9 Chronic kidney disease, unspecified; I50.32 Chronic diastolic (congestive) heart failure; E11.22 Type 2 diabetes mellitus with diabetic chronic kidney disease; E11.42 Type 2 diabetes mellitus with diabetic polyneuropathy; I25.10 Atherosclerotic heart disease of native coronary artery without angina pectoris; M19.90 Unspecified osteoarthritis, unspecified site; Z86.73 Personal history of transient ischemic attack (TIA), and cerebral infarction without residual deficits; Z87.891 Personal history of nicotine dependence; Z88.5 Allergy status to narcotic agent; Z79.82 Long term (current) use of aspirin; Z79.899 Other long term (current) drug therapy; Z98.49 Cataract extraction status, unspecified eye; Z96.649 Presence of unspecified artificial hip joint
CPT/HCPCS: 36415; 80048; 83880; 84443; 84484; 84550; 85025; 96365; 96366; 96372; 96375; 99217; 99220; 99225; 99284; A9270; G0378; J1885; J2930; J3480; J7040; 96374; S0171

== ENCOUNTER 2017-04-29 17:59 | Emergency (ER) | payer MEDICARE, BC ==
[2017-04-29 18:37] VITALS: BP 141/68
[2017-04-29] MEDS ORDERED: predniSONE 10 MG Tab ONE (18:40)
--- NOTE | 2017-04-30 | ER ---
HISTORY OF PRESENT ILLNESS: A 76-year-old male here with complaints of a gout flare up involving his right hand and wrist. This has been ongoing for two days. The patient states that he really has not taken much of medication. It seemed like in the past, the symptoms have gone away after two days. This time, it is not. It is not getting significantly worse, but it is not improving. He has been on indomethacin in the past but was told to quit taking that last Sunday when he was seen in the clinic because his kidney function was a little off. The patient also was given a script for allopurinol last Sunday, but has not picked it up yet. He denies any falls or injuries that could be causing discomfort to the involved area. OBJECTIVE: GENERAL APPEARANCE: The patient is awake and alert. No obvious distress. VITAL SIGNS: Reviewed. Blood pressure 141/68, he is afebrile. EXTREMITIES: Examining the right hand reveals moderate swelling over the dorsal aspect of the hand and wrist. There is minimal redness present over the dorsal aspect of the hand, and the entire area is tender with even very light touch. There is no break in the skin. DIAGNOSIS: Gout. TREATMENT PLAN: I will give the patient prednisone 50 mg this evening, then 40 mg tomorrow evening, and then the next day as well, followed by 20 mg if needed. The patient was given 15 tablets of 10 mg strength. I advised the patient he needs to start on the allopurinol and follow up with his primary provider within a couple of days if his symptoms are not improving. If his condition does improve, recheck should be in approximately one month to monitor the allopurinol. The patient has no further questions. CRS/MODL /[id number]
== END 2017-04-29 19:05 | disposition home or self-care (01) ==
LOC: LB.ED 17:59
DX: M10.9 Gout, unspecified (principal)
CPT/HCPCS: 99283; A9270

== ENCOUNTER 2020-07-14 10:07 | Inpatient (IN) | payer MEDICARE ==
[2020-07-14] MEDS: Sodium Chloride 0.9% 10 ML Syringe FLUSH PRN (10:37)
--- NOTE | 2020-07-14 10:50 | EDM.PDOC ---
ED HPI GENERAL MEDICAL PROBLEM - General Chief Complaint: Syncope Stated Complaint: UNRESPONSIVE Time Seen by Provider: 07/14/20 10:30 Source of Information: Reports: Patient, EMS, Family History Limitations: Reports: No Limitations - History of Present Illness INITIAL COMMENTS - FREE TEXT/NARRATIVE: patient was brought to the ER by EMS with a c/o loose stool for 3-4 days. Per family records, he has been out of energy and lethargic the last 48 hrs. lying in bed most of the time. not eating or drinking enough. Patient reports loose stool q2-3 hrs - and unble to have a good night sleep because of this as well. Stool is loose and brown in color. Denies abd pain, nausea or emesis. No CP or SOB. no palpitations or dizziness. No weakness or numbness. No contact with sick patients. also reports a pain in his left hand - h/o gout. hasn't been taking his medications ( ran out of them ). Lives at home with his , who hasn't been able to take care of him due to his size and due to her health as well. PMHx significant for CAD s/p stent placement 9 years ago, also h/o CVA, CHF and gout. Onset: Gradual Duration: Day(s): (3) Location: Reports: Abdomen Right Hand Pain Score (Numeric/FACES): 6 - Related Data Allergies Allergy/AdvReac Type Severity Reaction Status Date / Time morphine Allergy Intermediate Other Verified 07/14/20 10:19 Home Meds: Home Meds Ramipril 10 mg PO DAILY 03/04/16 [History] Isosorbide Mononitrate [Imdur] 30 mg PO DAILY tab.er 03/10/16 [Rx] Furosemide [Lasix] 80 mg PO DAILY 04/24/16 [History] Potassium Chloride [Klor-Con M20] 60 meq PO TID 12/10/16 [History] carvediloL [Carvedilol] 12.5 mg PO BIDMEALS 12/10/16 [History] metOLazone [Metolazone] 2.5 mg PO ASDIRECTED 12/10/16 [History] Aspirin [Halfprin] 81 mg PO DAILY 07/14/20 [History] Febuxostat [Uloric] 80 mg PO DAILY 07/14/20 [History] Furosemide [Lasix] 40 mg PO TID 07/14/20 [History] Past Medical History HEENT History: Reports: Cataract Cardiovascular History: Reports: CAD, Heart Failure, Stents Respiratory History: Reports: SOB Genitourinary History: Reports: Other (See Below) Other Genitourinary History: frequent urination, urgency Musculoskeletal History: Reports: Arthritis, Other (See Below) Other Musculoskeletal History: Gout hx from 3 months ago Neurological History: Reports: CVA Psychiatric History: Reports: Depression Endocrine/Metabolic History: Reports: Diabetes, Type II - Infectious Disease History Infectious Disease History: Reports: Measles - Past Surgical History HEENT Surgical History: Reports: Cataract Surgery Musculoskeletal Surgical History: Reports: Hip Replacement, Other (See Below) Social & Family History - Family History Family Medical History: Unobtainable Cardiac: Reports: Heart Failure Respiratory: Reports: None GI: Reports: None : Reports: None Psychiatric: Reports: None Endocrine/Metabolic: Reports: Diabetes, type II Hematologic: Reports: None Dermatologic: Reports: None Oncologic: Reports: Lung - Tobacco Use Tobacco Use Status *Q: Former Tobacco User Used Tobacco, but Quit: Yes Month/Year Tobacco Last Used: 1963 - Caffeine Use Caffeine Use: Reports: Tea - Recreational Drug Use Recreational Drug Use: No ED ROS GENERAL - Review of Systems Review Of Systems: See Below Constitutional: Reports: Malaise, Fatigue, Decreased Appetite, Weight Loss HEENT: Reports: No Symptoms Respiratory: Reports: No Symptoms Cardiovascular: Reports: No Symptoms GI/Abdominal: Reports: Diarrhea, Decreased Appetite : Reports: No Symptoms Musculoskeletal: Reports: No Symptoms Skin: Reports: No Symptoms Neurological: Reports: No Symptoms ED EXAM, GENERAL - Physical Exam Exam: See Below Exam Limited By: No Limitations General Appearance: Alert, No Apparent Distress, Lethargic Eye Exam: Bilateral Eye: EOMI, PERRL Respiratory/Chest: No Respiratory Distress, Lungs Clear, Normal Breath Sounds Cardiovascular: Normal Peripheral Pulses, Regular Rate, Rhythm GI/Abdominal: Soft, Non-Tender, Abnormal Bowel Sounds. No: No Distention, Distended Extremities: Other (there is swelling of the left hand/tender to palpation ) Neurological: Alert, Oriented, No Motor/Sensory Deficits Skin Exam: Warm, Dry Course - Vital Signs Last Recorded V/S: Last Vital Signs Temp 36.4 C 07/14/20 10:18 Pulse 79 07/14/20 10:31 Resp 13 04/28/21 10:31 BP 110/64 07/14/20 10:31 Pulse Ox 96 07/14/20 10:31 - Orders/Labs/Meds Orders: Active Orders 24 hr Category Date Time Status EKG Documentation Completion [RC] ASDIRECTED Care 07/14/20 10:42 Active Chest 1V Frontal [CR] Stat Exams 07/14/20 12:14 Taken CULTURE BLOOD [BC] Stat Lab 07/14/20 12:30 Received STOOL CULTURE Urgent Lab 07/14/20 10:43 Ordered Sodium Chloride 0.9% [Normal Saline] 1,000 ml Med 07/14/20 11:15 Active IV ASDIRECTED Sodium Chloride 0.9% [Saline Flush] Med 07/14/20 10:42 Active 10 ml FLUSH ASDIRECTED PRN Saline Lock Insert [OM.PC] Routine Oth 07/14/20 10:42 Ordered Medication Orders Sodium Chloride (Normal Saline) 1,000 mls @ 500 mls/hr IV ASDIRECTED CYNDI Last Admin: 07/14/20 10:37 Dose: 500 mls/hr Documented by: EDITA Sodium Chloride (Sodium Chloride 0.9% 10 Ml Syringe) 10 ml FLUSH ASDIRECTED PRN PRN Reason: Keep Vein Open Last Admin: 07/14/20 10:37 Dose: 10 ml Documented by: EDITA Labs: Laboratory Tests 07/14/20 07/14/20 07/14/20 Range/Units 10:56 11:00 11:00 WBC 15.1 H D (4.0-11.0) K/uL RBC 4.82 (4.50-6.50) M/uL Hgb 14.0 (13.0-18.0) g/dL Hct 41.3 (40.0-54.0) % MCV 86 (76-96) fL MCH 29.0 (27.0-32.0) pg MCHC 33.9 (31.0-35.0) g/dL RDW 14.8 (11.0-16.0) % Plt Count 254 (150-400) K/uL MPV 10.5 H (6.0-10.0) fL Neut % (Auto) 81.0 H (45.0-70.0) % Lymph % (Auto) 9.4 L (20.0-40.0) % [place] % (Auto) 9.3 (3.0-10.0) % Eos % (Auto) 0.2 L (1.0-5.0) % Baso % (Auto) 0.1 (0.0-0.5) % Neut # (Auto) 12.21 H (2.00-7.50) K/uL Lymph # (Auto) 1.42 L (1.50-4.00) K/uL [place] # (Auto) 1.40 H (0.20-0.80) K/uL Eos # (Auto) 0.03 L (0.04-0.40) K/uL Baso # (Auto) 0.02 (0.02-0.10) K/uL ESR (0-20) mm/hr PT (9.0-11.5) sec INR (1.0-3.5) Sodium 140 (136-145) mmol/L Potassium 2.6 L* D (3.5-5.1) mmol/L Chloride 99 (98-107) mmol/L Carbon Dioxide 30.7 (21.0-32.0) mmol/L Anion Gap 12.9 (5.0-15.0) mmol/L BUN 28 H (8-26) mg/dL Creatinine 2.34 H (0.70-1.30) mg/dL Est Cr Clr Drug Dosing 25.13 mL/min Estimated GFR (MDRD) 27 L (>60) MLS/MIN BUN/Creatinine Ratio 12.0 (6-25) Glucose 147 H D (74-100) mg/dL Uric Acid (2.6-7.2) mg/dL Calcium 8.7 (8.5-10.1) mg/dL Phosphorus (2.5-4.9) mg/dL Magnesium (1.8-2.4) mg/dL Total Bilirubin 1.2 H D (0.0-1.0) mg/dL AST 14 L (15-37) U/L ALT 18 (12-78) U/L Alkaline Phosphatase 81 (46-116) U/L C-Reactive Protein (0.0-3.0) mg/L B-Natriuretic Peptide (0-450) pg/mL Total Protein 7.8 (6.4-8.2) g/dL Albumin 3.2 L (3.4-5.0) g/dL Globulin 4.6 H (2.2-4.2) g/dL Albumin/Globulin Ratio 0.7 L (0.8-2.0) Urine Color Urine Appearance (CLEAR) Urine pH (5.0-8.0) Ur Specific Willis (1.003-1.030) Urine Protein (NEGATIVE) mg/dL Urine Glucose (UA) (NEGATIVE) mg/dL Urine Ketones (NEGATIVE) mg/dL Urine Occult Blood (NEGATIVE) Urine Nitrite (NEGATIVE) Urine Bilirubin (NEGATIVE) Urine Urobilinogen (0.2-1.0) E.U./dL Ur Leukocyte Esterase (NEGATIVE) Urine RBC /HPF Urine WBC /HPF Ur Squamous Epith Cells /HPF SARS CoV-2 RNA Rapid DARION Negative 07/14/20 07/14/20 07/14/20 Range/Units 11:00 11:00 11:00 WBC (4.0-11.0) K/uL RBC (4.50-6.50) M/uL Hgb (13.0-18.0) g/dL Hct (40.0-54.0) % MCV (76-96) fL MCH (27.0-32.0) pg MCHC (31.0-35.0) g/dL RDW (11.0-16.0) % Plt Count (150-400) K/uL MPV (6.0-10.0) fL Neut % (Auto) (45.0-70.0) % Lymph % (Auto) (20.0-40.0) % [place] % (Auto) (3.0-10.0) % Eos % (Auto) (1.0-5.0) % Baso % (Auto) (0.0-0.5) % Neut # (Auto) (2.00-7.50) K/uL Lymph # (Auto) (1.50-4.00) K/uL [place] # (Auto) (0.20-0.80) K/uL Eos # (Auto) (0.04-0.40) K/uL Baso # (Auto) (0.02-0.10) K/uL ESR 58 H (0-20) mm/hr PT 11.1 (9.0-11.5) sec INR 1.1 (1.0-3.5) Sodium (136-145) mmol/L Potassium (3.5-5.1) mmol/L Chloride (98-107) mmol/L Carbon Dioxide (21.0-32.0) mmol/L Anion Gap (5.0-15.0) mmol/L BUN (8-26) mg/dL Creatinine (0.70-1.30) mg/dL Est Cr Clr Drug Dosing mL/min Estimated GFR (MDRD) (>60) MLS/MIN BUN/Creatinine Ratio (6-25) Glucose (74-100) mg/dL Uric Acid (2.6-7.2) mg/dL Calcium (8.5-10.1) mg/dL Phosphorus (2.5-4.9) mg/dL Magnesium (1.8-2.4) mg/dL Total Bilirubin (0.0-1.0) mg/dL AST (15-37) U/L ALT (12-78) U/L Alkaline Phosphatase (46-116) U/L C-Reactive Protein 197.8 H (0.0-3.0) mg/L B-Natriuretic Peptide (0-450) pg/mL Total Protein (6.4-8.2) g/dL Albumin (3.4-5.0) g/dL Globulin (2.2-4.2) g/dL Albumin/Globulin Ratio (0.8-2.0) Urine Color Urine Appearance (CLEAR) Urine pH (5.0-8.0) Ur Specific Willis (1.003-1.030) Urine Protein (NEGATIVE) mg/dL Urine Glucose (UA) (NEGATIVE) mg/dL Urine Ketones (NEGATIVE) mg/dL Urine Occult Blood (NEGATIVE) Urine Nitrite (NEGATIVE) Urine Bilirubin (NEGATIVE) Urine Urobilinogen (0.2-1.0) E.U./dL Ur Leukocyte Esterase (NEGATIVE) Urine RBC /HPF Urine WBC /HPF Ur Squamous Epith Cells /HPF SARS CoV-2 RNA Rapid DARION 07/14/20 07/14/20 07/14/20 Range/Units 11:00 11:10 11:10 WBC (4.0-11.0) K/uL RBC (4.50-6.50) M/uL Hgb (13.0-18.0) g/dL Hct (40.0-54.0) % MCV (76-96) fL MCH (27.0-32.0) pg MCHC (31.0-35.0) g/dL RDW (11.0-16.0) % Plt Count (150-400) K/uL MPV (6.0-10.0) fL Neut % (Auto) (45.0-70.0) % Lymph % (Auto) (20.0-40.0) % [place] % (Auto) (3.0-10.0) % Eos % (Auto) (1.0-5.0) % Baso % (Auto) (0.0-0.5) % Neut # (Auto) (2.00-7.50) K/uL Lymph # (Auto) (1.50-4.00) K/uL [place] # (Auto) (0.20-0.80) K/uL Eos # (Auto) (0.04-0.40) K/uL Baso # (Auto) (0.02-0.10) K/uL ESR (0-20) mm/hr PT (9.0-11.5) sec INR (1.0-3.5) Sodium (136-145) mmol/L Potassium (3.5-5.1) mmol/L Chloride (98-107) mmol/L Carbon Dioxide (21.0-32.0) mmol/L Anion Gap (5.0-15.0) mmol/L BUN (8-26) mg/dL Creatinine (0.70-1.30) mg/dL Est Cr Clr Drug Dosing mL/min Estimated GFR (MDRD) (>60) MLS/MIN BUN/Creatinine Ratio (6-25) Glucose (74-100) mg/dL Uric Acid 9.5 H (2.6-7.2) mg/dL Calcium (8.5-10.1) mg/dL Phosphorus 3.0 (2.5-4.9) mg/dL Magnesium 2.3 (1.8-2.4) mg/dL Total Bilirubin (0.0-1.0) mg/dL AST (15-37) U/L ALT (12-78) U/L Alkaline Phosphatase (46-116) U/L C-Reactive Protein (0.0-3.0) mg/L B-Natriuretic Peptide 8740 H D (0-450) pg/mL Total Protein (6.4-8.2) g/dL Albumin (3.4-5.0) g/dL Globulin (2.2-4.2) g/dL Albumin/Globulin Ratio (0.8-2.0) Urine Color Yellow Urine Appearance Clear (CLEAR) Urine pH 7.5 (5.0-8.0) Ur Specific [place] 1.020 (1.003-1.030) Urine Protein Trace H (NEGATIVE) mg/dL Urine Glucose (UA) Negative (NEGATIVE) mg/dL Urine Ketones Negative (NEGATIVE) mg/dL Urine Occult Blood Negative (NEGATIVE) Urine Nitrite Negative (NEGATIVE) Urine Bilirubin Negative (NEGATIVE) Urine Urobilinogen 0.2 (0.2-1.0) E.U./dL Ur Leukocyte Esterase Negative (NEGATIVE) Urine RBC Not seen /HPF Urine WBC 0-5 H /HPF Ur Squamous Epith Cells Few /HPF SARS CoV-2 RNA Rapid DARION Meds: Medications Generic Name Dose Route Start Last Admin Trade Name Fredis PRN Reason Stop Dose Admin Sodium Chloride 1,000 mls @ 500 mls/hr 07/14/20 11:15 07/14/20 10:37 Normal Saline IV 500 mls/hr ASDIRECTED CYNDI Administration Sodium Chloride 10 ml 07/14/20 10:42 07/14/20 10:37 Sodium Chloride 0.9% 10 Ml Syringe FLUSH 10 ml ASDIRECTED PRN Administration Keep Vein Open Discontinued Medications Generic Name Dose Route Start Last Admin Trade Name Fredis PRN Reason Stop Dose Admin Ciprofloxacin 500 mg 07/14/20 13:02 07/14/20 13:19 Ciprofloxacin 500 Mg Tab PO 07/14/20 13:03 500 mg ONETIME ONE Administration Potassium Chloride 10 meq/ 50 mls @ 50 mls/hr 07/14/20 11:38 07/14/20 13:17 Premix IV 07/14/20 12:37 50 mls/hr ONETIME ONE Administration Methylprednisolone Sodium Succinate 40 mg 07/14/20 13:01 07/14/20 13:15 Methylprednisolone Sodium Succinate 40 Mg/1 Ml Sdv IVPUSH 07/14/20 13:02 40 mg ONETIME ONE Administration Methylprednisolone Sodium Succinate Confirm 04/28/21 13:24 07/14/20 13:18 Methylprednisolone Sodium Succinate 40 Mg/1 Ml Sdv Administered 07/14/20 13:25 Not Given Dose 40 mg .ROUTE .STK-MED ONE Metronidazole 500 mg 07/14/20 13:02 07/14/20 13:08 Metronidazole 500 Mg Tab PO 07/14/20 13:03 500 mg ONETIME ONE Administration Metronidazole Confirm 07/14/20 13:18 07/14/20 13:18 Metronidazole 500 Mg Tab Administered 07/14/20 13:19 Not Given Dose 500 mg .ROUTE .STK-MED ONE - Re-Assessments/Exams Free Text/Narrative Re-Assessment/Exam: IV line was established EKG was obtained - no acute ischemic changes. 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 Hartmann - who interpreted the EKG as a 1st degree AVB. No Afib. IVF was started gently for hydration due to concerns for dehydration 2/2 GI loss Labs were obtained - significant for leukocytosis, hypokalemia. Also significant for acute on chronic kidney injury. Patient is known CKD. Uric acid was significantly elevated as well as ESR/CRP CXR - no infiltrates Blood Cx was obtained CT abd/pelv - showed diverticulosis with a possible short segment diverticulitis. Also showed a possible enteritis. PO cipro/flagyl were given for enteritis Will admit to the floor for hydration, K replacement for hypokalemia and Abx. Will monitor kidney function and inflammatory markers Departure - Departure Time of Disposition: 13:18 Disposition: Admitted As Inpatient 64 Condition: Fair Clinical Impression: Hypokalemia, CHF, Congestive heart failure, Enteritis, Dehydration, moderate Chronic renal disease Qualifiers: Chronic kidney disease stage: stage 4 (severe) Qualified Code(s): N18.4 - Chronic kidney disease, stage 4 (severe) Gout attack Qualifiers: Gout site: hand Encounter type: initial encounter Laterality: left Leukocytosis Qualifiers: Leukocytosis type: bandemia Qualified Code(s): D72.825 - Bandemia - Discharge Information *PRESCRIPTION DRUG MONITORING PROGRAM REVIEWED*: No *COPY OF PRESCRIPTION DRUG MONITORING REPORT IN PATIENT KAREN: No Sepsis Event Note (ED) - Evaluation Sepsis Screening Result: No Definite Risk - Focused Exam Vital Signs: Vital Signs Temp Pulse Resp BP Pulse Ox 07/14/20 10:31 79 13 110/64 96 07/14/20 10:18 36.4 C 79 18 110/64 96 - Problem List & Annotations (1) CHF (congestive heart failure) SNOMED Code(s): 06599828 Code(s): I50.9 - HEART FAILURE, UNSPECIFIED Status: Acute Priority: Low Current Visit: No Qualifiers: Heart failure type: unspecified Heart failure chronicity: chronic Qualified Code(s): I50.9 - Heart failure, unspecified (2) Hypokalemia SNOMED Code(s): 76016129 Code(s): E87.6 - HYPOKALEMIA Status: Acute Priority: High Current Visit: Yes (3) Chronic renal disease SNOMED Code(s): 424018458 Code(s): N18.9 - CHRONIC KIDNEY DISEASE, UNSPECIFIED Status: Chronic Priority: High Current Visit: Yes Qualifiers: Chronic kidney disease stage: stage 4 (severe) Qualified Code(s): N18.4 - Chronic kidney disease, stage 4 (severe) (4) Gout attack SNOMED Code(s): 782406061 Code(s): M10.9 - GOUT, UNSPECIFIED Status: Acute Priority: High Current Visit: Yes Annotation/Comment:: 04/29/17 - Gout Qualifiers: Gout site: hand Encounter type: initial encounter Laterality: left (5) Dehydration, moderate SNOMED Code(s): 4745403469424 Code(s): E86.0 - DEHYDRATION Status: Acute Priority: Medium Current Visit: Yes (6) Enteritis SNOMED Code(s): 45541286 Code(s): K52.9 - NONINFECTIVE GASTROENTERITIS AND COLITIS, UNSPECIFIED Status: Acute Priority: Medium Current Visit: Yes (7) Leukocytosis SNOMED Code(s): 163309574, 633462523 Code(s): D72.829 - ELEVATED WHITE BLOOD CELL COUNT, UNSPECIFIED Status: Acute Priority: Medium Current Visit: Yes Qualifiers: Leukocytosis type: bandemia Qualified Code(s): D72.825 - Bandemia - Problem List Review Problem List Initiated/Reviewed/Updated: Yes - My Orders Last 24 Hours: My Active Orders 07/14/20 10:42 EKG Documentation Completion [RC] ASDIRECTED Sodium Chloride 0.9% [Saline Flush] 10 ml FLUSH ASDIRECTED PRN Saline Lock Insert [OM.PC] Routine 07/14/20 10:43 STOOL CULTURE Urgent 07/14/20 11:15 Sodium Chloride 0.9% [Normal Saline] 1,000 ml IV ASDIRECTED 07/14/20 12:14 Chest 1V Frontal [CR] Stat 07/14/20 12:30 CULTURE BLOOD [BC] Stat - Assessment/Plan Last 24 Hours: My Active Orders 07/14/20 10:42 EKG Documentation Completion [RC] ASDIRECTED Sodium Chloride 0.9% [Saline Flush] 10 ml FLUSH ASDIRECTED PRN Saline Lock Insert [OM.PC] Routine 07/14/20 10:43 STOOL CULTURE Urgent 07/14/20 11:15 Sodium Chloride 0.9% [Normal Saline] 1,000 ml IV ASDIRECTED 07/14/20 12:14 Chest 1V Frontal [CR] Stat 07/14/20 12:30 CULTURE BLOOD [BC] Stat Plan: Inpatient admission for IVF, electrolytes replacement and Abx. concerns for sepsis in an elderly gentleman 1- Dehydration 2/2 GI loss: gentle hydration with IVF and encourage PO intake. Close monitoring of Is/Os due to h/o CHF 2- Enteritis: unknown etiology, possible bacteria given left shift leukocytosis. Stool and Blood Cx pending. Will start Cipro and flagyl PO. Monitor for kidney function/clearance. Will space out doses. 3- Acute gout flare up of left hand: will start Solumedrol to help with acute flare up. Avoiding Allopurinol due to CKD. 4- Hypokalemia: acute on chronic. Will replace as needed 5- h/o CHF: will continue to monitor Is/Os. Not currently in a flare up 6- CKD: acute on chronic kidney disease. Got worse with dehydration 2/2 GI loss. Will continue to monitor closely. Daily labs. 7- Resume rest of home meds as before
[2020-07-14] MEDS ORDERED: Sodium Chloride 0.9% 1,000 ML IV SCH (11:15)
[2020-07-14] MEDS ORDERED: Potassium Chloride Riders 10 MEQ in Premix Bag 1 BAG IV ONE (11:38)
[2020-07-14] MEDS ORDERED: methylPREDNISolone Sodium Succinate 40 MG/1 ML SDV IVPUSH ONE (13:01)
[2020-07-14] MEDS ORDERED: metroNIDAZOLE 500 MG Tab PO ONE (13:02)
[2020-07-14] MEDS ORDERED: Ciprofloxacin 500 MG Tab PO ONE (13:02)
[2020-07-14] MEDS ORDERED: metroNIDAZOLE 500 MG Tab ONE (13:18)
[2020-07-14] MEDS ORDERED: methylPREDNISolone Sodium Succinate 40 MG/1 ML SDV ONE (13:24)
--- NOTE | 2020-07-14 13:40 | CT ---
DATE OF SERVICE: 07/14/2020 CLINICAL DATA: DIARRHEA Unenhanced abdomen and pelvic CT: The multi slice acquisition through the abdomen and pelvis without IV or oral contrast was performed. Comparison is made to a prior exam dated 31 May 2007. There is a 2.6 cm oval-shaped, soft tissue density, pleural based mass in the left lower lobe medially and posteriorly. This may be focal consolidation related to an infectious or inflammatory process. I cannot exclude a malignancy. There is a small hiatal hernia. Heart size is normal. There is diffuse fatty infiltration of the liver. There is a 3.2 cm rounded low- density lesion within the left lobe of the liver medial segment adjacent to the falciform ligament most likely representing a cyst. There is a 2.6 cm irregularly-shaped low-density lesion in the dome of the liver posterolaterally. It is not present on the prior CT. Dedicated multiphase unenhanced and enhanced hepatic CT with delayed imaging is recommended. No other focal hepatic lesions. There are numerous rim calcified gallstones within the gallbladder. No pericholecystic fluid. No biliary duct dilatation. The spleen appears normal. The pancreas is atrophic, otherwise unremarkable. The right and left adrenals appear normal. There is atrophy of both kidneys. There are cortical masslike structures within the interpolar regions of both kidneys that were not present on the prior CT. Dedicated renal CT with contrast enhancement is recommended. There is a low-density lesion in the upper pole the right kidney which is most likely a cyst. No nephrocalcinosis or nephrolithiasis. No hydronephrosis or hydroureter. The patient is status post bilateral total hip arthroplasty. There is significant beam hardening and streak artifact associated with these obscuring adjacent structures. The bladder is partially visualized. No abnormalities noted. Bladder pathology cannot be excluded. The prostate is partially obscured also. There are calcifications within it consistent with chronic prostatitis. Other prostate pathology cannot be excluded. The appendix is not dilated. No evidence of appendicitis. There is diverticulosis throughout the colon. There is subtle pericolonic fat stranding adjacent to the distal descending and proximal sigmoid colon suggesting mild diverticulitis. No evidence of diverticular abscess. No free air. No free fluid. No dilated loops of bowel. No adenopathy. No aortic aneurysm. There is a fat containing umbilical hernia. There is degenerative disc disease throughout the lower thoracic and lumbar spine. There is grade 1 anterolisthesis of L4 on L5. No lytic or blastic bone lesions. No other significant findings. Impression: Multiple findings as discussed above. See multiple recommendations above. MTDD
[2020-07-14] MEDS ORDERED: Non-Formulary Medication 1 Each (Metolazone [Metolazone] 2.5 MG Tablet) PO SCH (14:45)
[2020-07-14] MEDS: Heparin Sodium 5,000 Units/ML Vial SUBCUT SCH ×2 (15:00→22:12)
[2020-07-14] MEDS: Carvedilol 25 MG Tab PO SCH (15:00)
[2020-07-14] MEDS ORDERED: Carvedilol 12.5 MG Tab PO SCH (17:00)
[2020-07-14] MEDS: Potassium Chloride 20 MEQ Tab.ER PO SCH (19:54)
[2020-07-14] MEDS: metroNIDAZOLE 500 MG Tab PO SCH (19:55)
[2020-07-15] MEDS ORDERED: Acetaminophen 325 MG Tab PO PRN (05:41)
[2020-07-15] MEDS: Heparin Sodium 5,000 Units/ML Vial SUBCUT SCH ×3 (07:00→21:04)
[2020-07-15] MEDS ORDERED: RAMIPRIL 10 MG PO SCH (08:00)
[2020-07-15] MEDS ORDERED: Heparin Sodium 5,000 Units/ML Vial ONE (08:15)
[2020-07-15] MEDS: Isosorbide Mononitrate 30 MG Tab.ER PO SCH (08:17)
[2020-07-15] MEDS: Aspirin 81 MG Tab.EC PO SCH (08:17)
[2020-07-15] MEDS: Potassium Chloride 20 MEQ Tab.ER PO SCH ×3 (08:17→19:47)
[2020-07-15] MEDS: Carvedilol 25 MG Tab PO SCH ×2 (08:18→17:54)
[2020-07-15] MEDS: Furosemide 40 MG Tab PO SCH (08:18)
[2020-07-15] MEDS: Ciprofloxacin 250 MG Tab PO SCH ×2 (08:19→19:47)
[2020-07-15] MEDS: metroNIDAZOLE 500 MG Tab PO SCH ×2 (08:19→19:47)
[2020-07-15] MEDS: Lisinopril 20 MG Tab PO SCH (08:19)
[2020-07-15] MEDS ORDERED: Lactated Ringers 1,000 ML IV SCH (08:30)
--- NOTE | 2020-07-15 08:40 | CR ---
Date of Service: 07/14/20 Clinical Data: CHF PORTABLE CHEST: The patient has taken a poor inspiration and is in an apical lordotic position. Comparison is made to a prior exam dated 04/24/16. The heart size is within normal limits. The aorta is ectatic. The lungs are clear. No pneumothorax. No pleural effusion. There is a healed rib fracture on the right. No other significant findings. [id number] [facility]
[2020-07-15] MEDS: Sodium Chloride 0.9% 10 ML Syringe FLUSH PRN (10:00)
[2020-07-15] MEDS ORDERED: methylPREDNISolone Sodium Succinate 40 MG/1 ML SDV IVPUSH ONE (10:17)
--- NOTE | 2020-07-15 10:18 | PCM.HP.2 ---
H&P History of Present Illness - General Date of Service: 07/15/20 Admit Problem/Dx: Admission Diagnosis/Problem Admission Diagnosis/Problem Dehydration Source of Information: Patient History Limitations: Reports: No Limitations - History of Present Illness Initial Comments - Free Text/Narative: patient HD#1, was admitted to the facility for dehydration 2/2 GI loss/enteritis, and hypokalemia. Patient was also found to be in acute on CKD and gout flare-up left hand. Over night, patient was given gentle IVF hydration, and was started on PO cipro/flagyl. For gout - IV solumedrol. Today, patient reports significant improvement in his symptoms - diarrhea has improved, as well as, his appetite and left hand pain. Onset of Symptoms: Reports: Gradual Duration of Symptoms: Reports: Week(s): (2) Location: Reports: Abdomen Right Hand Pain Score (Numeric/FACES): 2 - Related Data Allergies/Adverse Reactions: Allergies Allergy/AdvReac Type Severity Reaction Status Date / Time morphine Allergy Intermediate Other Verified 07/14/20 10:19 Home Medications: Home Meds Ramipril 10 mg PO DAILY 03/04/16 [History] Isosorbide Mononitrate [Imdur] 30 mg PO DAILY tab.er 03/10/16 [Rx] Furosemide [Lasix] 80 mg PO DAILY 04/24/16 [History] Potassium Chloride [Klor-Con M20] 60 meq PO TID 12/10/16 [History] carvediloL [Carvedilol] 12.5 mg PO BIDMEALS 12/10/16 [History] metOLazone [Metolazone] 2.5 mg PO ASDIRECTED 12/10/16 [History] Aspirin [Halfprin] 81 mg PO DAILY 07/14/20 [History] Febuxostat [Uloric] 80 mg PO DAILY 07/14/20 [History] Furosemide [Lasix] 40 mg PO TID 07/14/20 [History] Past Medical History HEENT History: Reports: Cataract Cardiovascular History: Reports: CAD, Heart Failure, VT, Stents Respiratory History: Reports: SOB Genitourinary History: Reports: Acute Renal Failure, Other (See Below) Other Genitourinary History: frequent urination, urgency Musculoskeletal History: Reports: Arthritis, Other (See Below) Other Musculoskeletal History: Gout Neurological History: Reports: CVA Psychiatric History: Reports: Depression Endocrine/Metabolic History: Reports: Diabetes, Type II - Infectious Disease History Infectious Disease History: Reports: Measles - Past Surgical History HEENT Surgical History: Reports: Cataract Surgery Musculoskeletal Surgical History: Reports: Hip Replacement, Other (See Below) Other Musculoskeletal Surgeries/Procedures:: shoulder pain, right and left Social & Family History - Family History Family Medical History: Unobtainable Cardiac: Reports: Heart Failure Respiratory: Reports: None GI: Reports: None : Reports: None Psychiatric: Reports: None Endocrine/Metabolic: Reports: Diabetes, type II Hematologic: Reports: None Dermatologic: Reports: None Oncologic: Reports: Lung - Tobacco Use Tobacco Use Status *Q: Former Tobacco User Used Tobacco, but Quit: Yes Month/Year Tobacco Last Used: 1963 Second Hand Smoke Exposure: No - Caffeine Use Caffeine Use: Reports: Tea - Recreational Drug Use Recreational Drug Use: No H&P Review of Systems - Review of Systems: Review Of Systems: See Below General: Reports: Chills, Malaise, Fatigue HEENT: Reports: No Symptoms Pulmonary: Reports: No Symptoms Gastrointestinal: Reports: Diarrhea Genitourinary: Reports: No Symptoms Musculoskeletal: Reports: No Symptoms Exam - Exam Exam: See Below - Vital Signs Vital Signs: Last Vital Signs Temp 36.0 C L 07/15/20 08:52 Pulse 102 H 07/15/20 08:52 Resp 18 07/15/20 08:52 BP 139/72 07/15/20 08:52 Pulse Ox 96 07/15/20 08:52 Weight: 88.813 kg - Exam General: Alert, Oriented HEENT: PERRLA Lungs: Clear to Auscultation, Normal Respiratory Effort Cardiovascular: Regular Rate, Regular Rhythm GI/Abdominal Exam: Normal Bowel Sounds, Soft, Non-Tender Back Exam: Normal Inspection Neuro Extensive - Mental Status: Alert, Oriented x3, Normal Mood/Affect Psychiatric: Alert - Patient Data Lab Results Last 24 hrs: Laboratory Results - last 24 hr 07/14/20 07/14/20 07/14/20 Range/Units 10:56 11:00 11:00 WBC 15.1 H D (4.0-11.0) K/uL RBC 4.82 (4.50-6.50) M/uL Hgb 14.0 (13.0-18.0) g/dL Hct 41.3 (40.0-54.0) % MCV 86 (76-96) fL MCH 29.0 (27.0-32.0) pg MCHC 33.9 (31.0-35.0) g/dL RDW 14.8 (11.0-16.0) % Plt Count 254 (150-400) K/uL MPV 10.5 H (6.0-10.0) fL Neut % (Auto) 81.0 H (45.0-70.0) % Lymph % (Auto) 9.4 L (20.0-40.0) % [place] % (Auto) 9.3 (3.0-10.0) % Eos % (Auto) 0.2 L (1.0-5.0) % Baso % (Auto) 0.1 (0.0-0.5) % Neut # (Auto) 12.21 H (2.00-7.50) K/uL Lymph # (Auto) 1.42 L (1.50-4.00) K/uL [place] # (Auto) 1.40 H (0.20-0.80) K/uL Eos # (Auto) 0.03 L (0.04-0.40) K/uL Baso # (Auto) 0.02 (0.02-0.10) K/uL ESR (0-20) mm/hr PT (9.0-11.5) sec INR (1.0-3.5) Sodium 140 (136-145) mmol/L Potassium 2.6 L* D (3.5-5.1) mmol/L Chloride 99 (98-107) mmol/L Carbon Dioxide 30.7 (21.0-32.0) mmol/L Anion Gap 12.9 (5.0-15.0) mmol/L BUN 28 H (8-26) mg/dL Creatinine 2.34 H (0.70-1.30) mg/dL Est Cr Clr Drug Dosing 25.13 mL/min Estimated GFR (MDRD) 27 L (>60) MLS/MIN BUN/Creatinine Ratio 12.0 (6-25) Glucose 147 H D (74-100) mg/dL Uric Acid (2.6-7.2) mg/dL Calcium 8.7 (8.5-10.1) mg/dL Phosphorus (2.5-4.9) mg/dL Magnesium (1.8-2.4) mg/dL Total Bilirubin 1.2 H D (0.0-1.0) mg/dL AST 14 L (15-37) U/L ALT 18 (12-78) U/L Alkaline Phosphatase 81 (46-116) U/L C-Reactive Protein (0.0-3.0) mg/L B-Natriuretic Peptide (0-450) pg/mL Total Protein 7.8 (6.4-8.2) g/dL Albumin 3.2 L (3.4-5.0) g/dL Globulin 4.6 H (2.2-4.2) g/dL Albumin/Globulin Ratio 0.7 L (0.8-2.0) Urine Color Urine Appearance (CLEAR) Urine pH (5.0-8.0) Ur Specific [place] (1.003-1.030) Urine Protein (NEGATIVE) mg/dL Urine Glucose (UA) (NEGATIVE) mg/dL Urine Ketones (NEGATIVE) mg/dL Urine Occult Blood (NEGATIVE) Urine Nitrite (NEGATIVE) Urine Bilirubin (NEGATIVE) Urine Urobilinogen (0.2-1.0) E.U./dL Ur Leukocyte Esterase (NEGATIVE) Urine RBC /HPF Urine WBC /HPF Ur Squamous Epith Cells /HPF SARS CoV-2 RNA Rapid DARION Negative 07/14/20 07/14/20 07/14/20 Range/Units 11:00 11:00 11:00 WBC (4.0-11.0) K/uL RBC (4.50-6.50) M/uL Hgb (13.0-18.0) g/dL Hct (40.0-54.0) % MCV (76-96) fL MCH (27.0-32.0) pg MCHC (31.0-35.0) g/dL RDW (11.0-16.0) % Plt Count (150-400) K/uL MPV (6.0-10.0) fL Neut % (Auto) (45.0-70.0) % Lymph % (Auto) (20.0-40.0) % [place] % (Auto) (3.0-10.0) % Eos % (Auto) (1.0-5.0) % Baso % (Auto) (0.0-0.5) % Neut # (Auto) (2.00-7.50) K/uL Lymph # (Auto) (1.50-4.00) K/uL [place] # (Auto) (0.20-0.80) K/uL Eos # (Auto) (0.04-0.40) K/uL Baso # (Auto) (0.02-0.10) K/uL ESR 58 H (0-20) mm/hr PT 11.1 (9.0-11.5) sec INR 1.1 (1.0-3.5) Sodium (136-145) mmol/L Potassium (3.5-5.1) mmol/L Chloride (98-107) mmol/L Carbon Dioxide (21.0-32.0) mmol/L Anion Gap (5.0-15.0) mmol/L BUN (8-26) mg/dL Creatinine (0.70-1.30) mg/dL Est Cr Clr Drug Dosing mL/min Estimated GFR (MDRD) (>60) MLS/MIN BUN/Creatinine Ratio (6-25) Glucose (74-100) mg/dL Uric Acid (2.6-7.2) mg/dL Calcium (8.5-10.1) mg/dL Phosphorus (2.5-4.9) mg/dL Magnesium (1.8-2.4) mg/dL Total Bilirubin (0.0-1.0) mg/dL AST (15-37) U/L ALT (12-78) U/L Alkaline Phosphatase (46-116) U/L C-Reactive Protein 197.8 H (0.0-3.0) mg/L B-Natriuretic Peptide (0-450) pg/mL Total Protein (6.4-8.2) g/dL Albumin (3.4-5.0) g/dL Globulin (2.2-4.2) g/dL Albumin/Globulin Ratio (0.8-2.0) Urine Color Urine Appearance (CLEAR) Urine pH (5.0-8.0) Ur Specific [place] (1.003-1.030) Urine Protein (NEGATIVE) mg/dL Urine Glucose (UA) (NEGATIVE) mg/dL Urine Ketones (NEGATIVE) mg/dL Urine Occult Blood (NEGATIVE) Urine Nitrite (NEGATIVE) Urine Bilirubin (NEGATIVE) Urine Urobilinogen (0.2-1.0) E.U./dL Ur Leukocyte Esterase (NEGATIVE) Urine RBC /HPF Urine WBC /HPF Ur Squamous Epith Cells /HPF SARS CoV-2 RNA Rapid DARION 07/14/20 07/14/20 07/14/20 Range/Units 11:00 11:10 11:10 WBC (4.0-11.0) K/uL RBC (4.50-6.50) M/uL Hgb (13.0-18.0) g/dL Hct (40.0-54.0) % MCV (76-96) fL MCH (27.0-32.0) pg MCHC (31.0-35.0) g/dL RDW (11.0-16.0) % Plt Count (150-400) K/uL MPV (6.0-10.0) fL Neut % (Auto) (45.0-70.0) % Lymph % (Auto) (20.0-40.0) % [place] % (Auto) (3.0-10.0) % Eos % (Auto) (1.0-5.0) % Baso % (Auto) (0.0-0.5) % Neut # (Auto) (2.00-7.50) K/uL Lymph # (Auto) (1.50-4.00) K/uL [place] # (Auto) (0.20-0.80) K/uL Eos # (Auto) (0.04-0.40) K/uL Baso # (Auto) (0.02-0.10) K/uL ESR (0-20) mm/hr PT (9.0-11.5) sec INR (1.0-3.5) Sodium (136-145) mmol/L Potassium (3.5-5.1) mmol/L Chloride (98-107) mmol/L Carbon Dioxide (21.0-32.0) mmol/L Anion Gap (5.0-15.0) mmol/L BUN (8-26) mg/dL Creatinine (0.70-1.30) mg/dL Est Cr Clr Drug Dosing mL/min Estimated GFR (MDRD) (>60) MLS/MIN BUN/Creatinine Ratio (6-25) Glucose (74-100) mg/dL Uric Acid 9.5 H (2.6-7.2) mg/dL Calcium (8.5-10.1) mg/dL Phosphorus 3.0 (2.5-4.9) mg/dL Magnesium 2.3 (1.8-2.4) mg/dL Total Bilirubin (0.0-1.0) mg/dL AST (15-37) U/L ALT (12-78) U/L Alkaline Phosphatase (46-116) U/L C-Reactive Protein (0.0-3.0) mg/L B-Natriuretic Peptide 8740 H D (0-450) pg/mL Total Protein (6.4-8.2) g/dL Albumin (3.4-5.0) g/dL Globulin (2.2-4.2) g/dL Albumin/Globulin Ratio (0.8-2.0) Urine Color Yellow Urine Appearance Clear (CLEAR) Urine pH 7.5 (5.0-8.0) Ur Specific [place] 1.020 (1.003-1.030) Urine Protein Trace H (NEGATIVE) mg/dL Urine Glucose (UA) Negative (NEGATIVE) mg/dL Urine Ketones Negative (NEGATIVE) mg/dL Urine Occult Blood Negative (NEGATIVE) Urine Nitrite Negative (NEGATIVE) Urine Bilirubin Negative (NEGATIVE) Urine Urobilinogen 0.2 (0.2-1.0) E.U./dL Ur Leukocyte Esterase Negative (NEGATIVE) Urine RBC Not seen /HPF Urine WBC 0-5 H /HPF Ur Squamous Epith Cells Few /HPF SARS CoV-2 RNA Rapid DARION 07/15/20 07/15/20 07/15/20 Range/Units 07:15 07:15 07:15 WBC 10.4 D (4.0-11.0) K/uL RBC 4.42 L (4.50-6.50) M/uL Hgb 12.8 L (13.0-18.0) g/dL Hct 38.0 L (40.0-54.0) % MCV 86 (76-96) fL MCH 29.0 (27.0-32.0) pg MCHC 33.7 (31.0-35.0) g/dL RDW 14.8 (11.0-16.0) % Plt Count 250 (150-400) K/uL MPV 11.3 H (6.0-10.0) fL Neut % (Auto) 79.5 H (45.0-70.0) % Lymph % (Auto) 14.3 L (20.0-40.0) % [place] % (Auto) 6.1 (3.0-10.0) % Eos % (Auto) 0.0 L (1.0-5.0) % Baso % (Auto) 0.1 (0.0-0.5) % Neut # (Auto) 8.29 H (2.00-7.50) K/uL Lymph # (Auto) 1.49 L (1.50-4.00) K/uL [place] # (Auto) 0.64 (0.20-0.80) K/uL Eos # (Auto) 0.00 L (0.04-0.40) K/uL Baso # (Auto) 0.01 L (0.02-0.10) K/uL ESR (0-20) mm/hr PT (9.0-11.5) sec INR (1.0-3.5) Sodium 140 (136-145) mmol/L Potassium 2.9 L* (3.5-5.1) mmol/L Chloride 102 (98-107) mmol/L Carbon Dioxide 27.1 (21.0-32.0) mmol/L Anion Gap 13.8 (5.0-15.0) mmol/L BUN 41 H D (8-26) mg/dL Creatinine 2.43 H (0.70-1.30) mg/dL Est Cr Clr Drug Dosing 24.20 mL/min Estimated GFR (MDRD) 26 L (>60) MLS/MIN BUN/Creatinine Ratio 16.9 (6-25) Glucose 156 H (74-100) mg/dL Uric Acid (2.6-7.2) mg/dL Calcium 9.2 (8.5-10.1) mg/dL Phosphorus (2.5-4.9) mg/dL Magnesium (1.8-2.4) mg/dL Total Bilirubin (0.0-1.0) mg/dL AST (15-37) U/L ALT (12-78) U/L Alkaline Phosphatase (46-116) U/L C-Reactive Protein 160.3 H (0.0-3.0) mg/L B-Natriuretic Peptide (0-450) pg/mL Total Protein (6.4-8.2) g/dL Albumin (3.4-5.0) g/dL Globulin (2.2-4.2) g/dL Albumin/Globulin Ratio (0.8-2.0) Urine Color Urine Appearance (CLEAR) Urine pH (5.0-8.0) Ur Specific [place] (1.003-1.030) Urine Protein (NEGATIVE) mg/dL Urine Glucose (UA) (NEGATIVE) mg/dL Urine Ketones (NEGATIVE) mg/dL Urine Occult Blood (NEGATIVE) Urine Nitrite (NEGATIVE) Urine Bilirubin (NEGATIVE) Urine Urobilinogen (0.2-1.0) E.U./dL Ur Leukocyte Esterase (NEGATIVE) Urine RBC /HPF Urine WBC /HPF Ur Squamous Epith Cells /HPF SARS CoV-2 RNA Rapid DARION Result Diagrams: 07/15/20 07:15 07/15/20 07:15 Sepsis Event Note - Evaluation Sepsis Screening Result: No Definite Risk - Focused Exam Vital Signs: Vital Signs Temp Pulse Pulse Resp BP BP Pulse Ox 07/15/20 08:52 36.0 C L 102 H 18 139/72 96 07/15/20 08:19 139/72 07/15/20 08:18 102 H 139/72 07/15/20 08:17 139/72 07/15/20 04:41 36.6 C 82 16 114/77 98 07/15/20 00:57 36.6 C 67 16 124/70 97 - Problem List (1) CHF (congestive heart failure) SNOMED Code(s): 67900608 ICD Code: I50.9 - HEART FAILURE, UNSPECIFIED Status: Acute Priority: Low Current Visit: No Qualifiers: Heart failure type: unspecified Heart failure chronicity: chronic Q ualified Code(s): I50.9 - Heart failure, unspecified (2) Hypokalemia SNOMED Code(s): 30805794 ICD Code: E87.6 - HYPOKALEMIA Status: Acute Priority: High Current Visit: Yes (3) Chronic renal disease SNOMED Code(s): 303642367 ICD Code: N18.9 - CHRONIC KIDNEY DISEASE, UNSPECIFIED Status: Chronic Priority: High Current Visit: Yes Qualifiers: Chronic kidney disease stage: stage 4 (severe) Qualified Code(s): N18.4 - Chronic kidney disease, stage 4 (severe) (4) Gout attack SNOMED Code(s): 021358458 ICD Code: M10.9 - GOUT, UNSPECIFIED Status: Acute Priority: High Current Visit: Yes Problem Details: 04/29/17 - Gout Qualifiers: Gout site: hand Encounter type: initial encounter Laterality: left (5) Dehydration, moderate SNOMED Code(s): 6546783752393 ICD Code: E86.0 - DEHYDRATION Status: Acute Priority: Medium Current Visit: Yes (6) Enteritis SNOMED Code(s): 62010331 ICD Code: K52.9 - NONINFECTIVE GASTROENTERITIS AND COLITIS, UNSPECIFIED Status: Acute Priority: Medium Current Visit: Yes (7) Leukocytosis SNOMED Code(s): 088866392, 775116653 ICD Code: D72.829 - ELEVATED WHITE BLOOD CELL COUNT, UNSPECIFIED Status: Acute Priority: Medium Current Visit: Yes Qualifiers: Leukocytosis type: bandemia Qualified Code(s): D72.825 - Bandemia Problem List Initiated/Reviewed/Updated: Yes Orders Last 24hrs: Active Orders 24 hr Category Date Time Status Admission Status [Patient Status] [ADT] Routine ADT 07/14/20 13:30 Active Bedrest Bedside Commode [RC] ASDIRECTED Care 07/14/20 14:28 Active Diabetes Education [RC] Click to Edit Care 07/14/20 14:30 Active Intake and Output [RC] 06,18 Care 07/14/20 14:29 Active Oxygen Therapy [RC] PRN Care 07/14/20 14:28 Active Telemetry Monitoring [Cardiac Monitoring] [RC] 08,14,20 Care 07/14/20 18:13 Active Up With Assistance [RC] ASDIRECTED Care 07/14/20 14:28 Active VTE/DVT Education [RC] Per Unit Routine Care 07/14/20 14:28 Active Vital Signs [RC] Q4H Care 07/14/20 14:28 Active Heart Healthy Diet [DIET] Diet 07/14/20 Dinner Ordered BASIC METABOLIC PANEL,BMP [CHEM] AM Lab 07/16/20 05:11 Ordered CULTURE BLOOD [BC] Stat Lab 07/14/20 12:30 Received CULTURE MRSA SURVEY [RM] Routine Lab 07/15/20 08:29 Received STOOL CULTURE Urgent Lab 07/14/20 14:30 Received Acetaminophen [TylenoL] Med 07/15/20 05:41 Active 650 mg PO Q4H PRN Aspirin [Halfprin] Med 07/15/20 08:00 Active 81 mg PO DAILY Ciprofloxacin [Ciprofloxacin HCl] Med 07/15/20 08:00 Active 250 mg PO BID Febuxostat [Uloric] Med 07/15/20 08:00 Active 80 mg PO DAILY Furosemide [Lasix] Med 07/15/20 08:00 Active 80 mg PO DAILY Heparin Sodium Med 07/14/20 14:00 Active 5,000 units SUBCUT Q8H Isosorbide Mononitrate [Imdur] Med 07/15/20 08:00 Active 30 mg PO DAILY Lactated Ringers [Ringers, Lactated] 1,000 ml Med 07/15/20 08:30 Active IV ASDIRECTED Potassium Chloride [Klor-Con M20] Med 07/14/20 20:00 Active 60 meq PO TID Sodium Chloride 0.9% [Saline Flush] Med 07/14/20 10:42 Active 10 ml FLUSH ASDIRECTED PRN carvediloL [Coreg] Med 07/14/20 17:00 Active 12.5 mg PO BIDMEALS lisinopriL [Prinivil] Med 07/15/20 08:00 Active 20 mg PO DAILY metOLazone [Zaroxolyn] Med 07/16/20 08:00 Active 2.5 mg PO MoWeFr methylPREDNISolone Sod Succ [Solu-MEDROL] Med 07/15/20 10:17 Once 40 mg IVPUSH ONETIME ONE metroNIDAZOLE [Flagyl] Med 07/14/20 20:00 Active 500 mg PO Q12H Glucose Management Sub Q Reflex [OM.PC] Click to Edit Oth 07/14/20 14:28 Ordered Isolation [COMM] Routine Oth 07/14/20 17:25 Active Saline Lock Insert [OM.PC] Routine Oth 07/14/20 10:42 Ordered Resuscitation Status Routine Resus Stat 07/14/20 14:28 Ordered Medication Orders Acetaminophen (Acetaminophen 325 Mg Tab) 650 mg PO Q4H PRN PRN Reason: pain Aspirin (Aspirin 81 Mg Tab.Ec) 81 mg PO DAILY [facility] Last Admin: 07/15/20 08:17 Dose: 81 mg Documented by: EDITA Carvedilol (Carvedilol 25 Mg Tab) 12.5 mg PO BIDMEALS [facility] Last Admin: 07/15/20 08:18 Dose: 12.5 mg Documented by: Admin: 07/14/20 15:00 Dose: 12.5 mg Documented by: EDITA Ciprofloxacin (Ciprofloxacin 250 Mg Tab) 250 mg PO BID [facility] Last Admin: 07/15/20 08:19 Dose: 250 mg Documented by: EDITA Febuxostat (Febuxostat 80 Mg Tab) 80 mg PO DAILY [facility] Last Admin: 07/15/20 08:21 Dose: 80 mg Documented by: EDITA Furosemide (Furosemide 40 Mg Tab) 80 mg PO DAILY [facility] Last Admin: 07/15/20 08:18 Dose: 80 mg Documented by: EDITA Heparin Sodium (Porcine) (Heparin Sodium 5,000 Units/Ml Vial) 5,000 units SUBCUT Q8H [facility] Last Admin: 07/15/20 07:00 Dose: 5,000 units Documented by: Admin: 07/14/20 22:12 Dose: 5,000 units Documented by: Admin: 07/14/20 15:00 Dose: 5,000 units Documented by: EDITA Lactated Ringer's (Ringers, Lactated) 1,000 mls @ 150 mls/hr IV ASDIRECTED [facility] Last Admin: 07/15/20 10:00 Dose: 150 mls/hr Documented by: EDITA Isosorbide Mononitrate (Isosorbide Mononitrate 30 Mg Tab.Er) 30 mg PO DAILY [facility] Last Admin: 07/15/20 08:17 Dose: 30 mg Documented by: EDITA Lisinopril (Lisinopril 20 Mg Tab) 20 mg PO DAILY [facility] Last Admin: 07/15/20 08:19 Dose: 20 mg Documented by: EDITA Methylprednisolone Sodium Succinate (Methylprednisolone Sodium Succinate 40 Mg/1 Ml Sdv) 40 mg IVPUSH ONETIME ONE Stop: 07/15/20 10:18 Metolazone (Metolazone 5 Mg Tab) 2.5 mg PO MoWeFr [facility] Metronidazole (Metronidazole 500 Mg Tab) 500 mg PO Q12H [facility] Last Admin: 07/15/20 08:19 Dose: 500 mg Documented by: Admin: 07/14/20 19:55 Dose: 500 mg Documented by: ANGELO Potassium Chloride (Potassium Chloride 20 Meq Tab.Er) 60 meq PO TID [facility] Last Admin: 07/15/20 08:17 Dose: 60 meq Documented by: Admin: 07/14/20 19:54 Dose: 60 meq Documented by: ANGELO Sodium Chloride (Sodium Chloride 0.9% 10 Ml Syringe) 10 ml FLUSH ASDIRECTED PRN PRN Reason: Keep Vein Open Last Admin: 07/14/20 10:37 Dose: 10 ml Documented by: EDITA Assessment/Plan Comment:: 1- Dehydration 2/2 GI loss: gentle hydration with IVF and encourage PO intake. Close monitoring of Is/Os due to h/o CHF 2- Enteritis: unknown etiology, possible bacteria given left shift leukocytosis. Stool and Blood Cx pending. Continue Cipro and flagyl PO for 10 days total ( ends July 24). Monitor for kidney function/clearance. Will space out doses. 3- Acute gout flare up of left hand: IV Solumedrol 40mg to help with acute flare up. Avoiding Allopurinol due to CKD. 4- Hypokalemia: acute on chronic. Will replace as needed. Already on PO regimen. 5- h/o CHF: will continue to monitor Is/Os. Not currently in a flare up 6- CKD: acute on chronic kidney disease. Got worse with dehydration 2/2 GI loss. Will continue to monitor closely. Daily labs. 7- Resume rest of home meds as before 8- DVT ppx heparin 5k TID - Mortality Measure Prognosis:: Good
[2020-07-16] MEDS: Heparin Sodium 5,000 Units/ML Vial SUBCUT SCH ×3 (06:00→20:59)
[2020-07-16] MEDS: Isosorbide Mononitrate 30 MG Tab.ER PO SCH (07:58)
[2020-07-16] MEDS: Ciprofloxacin 250 MG Tab PO SCH ×2 (08:02→19:42)
[2020-07-16] MEDS: Aspirin 81 MG Tab.EC PO SCH (08:03)
[2020-07-16] MEDS: Furosemide 40 MG Tab PO SCH (08:04)
[2020-07-16] MEDS: Lisinopril 20 MG Tab PO SCH (08:05)
[2020-07-16] MEDS: Carvedilol 25 MG Tab PO SCH (08:06)
[2020-07-16] MEDS: metroNIDAZOLE 500 MG Tab PO SCH ×2 (08:06→19:43)
[2020-07-16] MEDS: Potassium Chloride 20 MEQ Tab.ER PO SCH ×3 (08:23→19:42)
[2020-07-16] MEDS: Metolazone 5 MG Tab PO SCH (08:25)
[2020-07-16] MEDS: Sodium Chloride 0.9% 10 ML Syringe FLUSH PRN ×3 (08:29→20:53)
[2020-07-16] MEDS ORDERED: Potassium Chloride Riders 10 MEQ in Premix Bag 1 BAG IV ONE (08:56)
[2020-07-16] MEDS ORDERED: Potassium Chloride Riders 50 ML ONE (09:08)
[2020-07-16] MEDS: predniSONE 10 MG Tab PO SCH (09:41)
--- NOTE | 2020-07-16 11:44 | PCM.PN ---
- General Info Date of Service: 07/16/20 Admission Dx/Problem (Free Text): Admission Diagnosis/Problem Admission Diagnosis/Problem Dehydration Functional Status: Reports: Pain Controlled, Tolerating Diet, Ambulating - Review of Systems General: Reports: No Symptoms HEENT: Reports: No Symptoms Pulmonary: Reports: No Symptoms Cardiovascular: Reports: No Symptoms Gastrointestinal: Reports: No Symptoms Musculoskeletal: Reports: No Symptoms Skin: Reports: No Symptoms Neurological: Reports: No Symptoms Psychiatric: Reports: No Symptoms - Patient Data Vitals - Most Recent: Last Vital Signs Temp 36.3 C 07/16/20 08:00 Pulse 52 L 07/16/20 08:06 Resp 20 07/16/20 08:00 BP 141/44 H 07/16/20 08:06 Pulse Ox 97 07/16/20 08:00 Weight - Most Recent: 91.626 kg I&O - Last 24 Hours: Intake & Output 07/15/20 07/16/20 07/16/20 22:59 06:59 14:59 Intake Total 1300 1130 Output Total 900 1050 Balance 400 80 Lab Results Last 24 Hours: Laboratory Results - last 24 hr 07/16/20 07/16/20 07/16/20 Range/Units 08:05 08:05 08:05 WBC 11.6 H (4.0-11.0) K/uL RBC 4.26 L (4.50-6.50) M/uL Hgb 12.3 L (13.0-18.0) g/dL Hct 36.9 L (40.0-54.0) % MCV 87 (76-96) fL MCH 28.9 (27.0-32.0) pg MCHC 33.3 (31.0-35.0) g/dL RDW 14.8 (11.0-16.0) % Plt Count 277 (150-400) K/uL MPV 10.7 H (6.0-10.0) fL Sodium 138 (136-145) mmol/L Potassium 2.8 L* (3.5-5.1) mmol/L Chloride 102 (98-107) mmol/L Carbon Dioxide 26.1 (21.0-32.0) mmol/L Anion Gap 12.7 (5.0-15.0) mmol/L BUN 51 H* D (8-26) mg/dL Creatinine 2.35 H (0.70-1.30) mg/dL Est Cr Clr Drug Dosing 25.02 mL/min Estimated GFR (MDRD) 27 L (>60) MLS/MIN BUN/Creatinine Ratio 21.7 (6-25) Glucose 135 H (74-100) mg/dL Calcium 8.5 (8.5-10.1) mg/dL C-Reactive Protein 79.5 H (0.0-3.0) mg/L Bradley Results Last 24 Hours: Microbiology 07/15/20 08:29 MRSA Surveillance Culture - Final Nares, Unspecified NO MRSA ISOLATED 07/14/20 12:30 Aerobic Blood Culture - Preliminary Blood NO GROWTH AFTER 1 DAY Anaerobic Blood Culture - Preliminary NO GROWTH AFTER 1 DAY Med Orders - Current: Current Medications Acetaminophen (Acetaminophen 325 Mg Tab) 650 mg PO Q4H PRN PRN Reason: pain Aspirin (Aspirin 81 Mg Tab.Ec) 81 mg PO DAILY [facility] Last Admin: 07/16/20 08:03 Dose: 81 mg Documented by: Carvedilol (Carvedilol 25 Mg Tab) 12.5 mg PO BIDMEALS [facility] Last Admin: 07/16/20 08:06 Dose: 12.5 mg Documented by: Ciprofloxacin (Ciprofloxacin 250 Mg Tab) 250 mg PO BID [facility] Last Admin: 07/16/20 08:02 Dose: 250 mg Documented by: Febuxostat (Febuxostat 80 Mg Tab) 80 mg PO DAILY [facility] Last Admin: 07/16/20 08:07 Dose: 80 mg Documented by: Furosemide (Furosemide 40 Mg Tab) 80 mg PO DAILY [facility] Last Admin: 07/16/20 08:04 Dose: 80 mg Documented by: Heparin Sodium (Porcine) (Heparin Sodium 5,000 Units/Ml Vial) 5,000 units SUBCUT Q8H [facility] Last Admin: 07/16/20 06:00 Dose: 5,000 units Documented by: Lactated Ringer's (Ringers, Lactated) 1,000 mls @ 150 mls/hr IV ASDIRECTED [facility] Last Admin: 07/15/20 10:00 Dose: 150 mls/hr Documented by: Isosorbide Mononitrate (Isosorbide Mononitrate 30 Mg Tab.Er) 30 mg PO DAILY [facility] Last Admin: 07/16/20 07:58 Dose: 30 mg Documented by: Lisinopril (Lisinopril 20 Mg Tab) 20 mg PO DAILY [facility] Last Admin: 07/16/20 08:05 Dose: 20 mg Documented by: Metolazone (Metolazone 5 Mg Tab) 2.5 mg PO MoWeFr [facility] Last Admin: 07/16/20 08:25 Dose: 2.5 mg Documented by: Metronidazole (Metronidazole 500 Mg Tab) 500 mg PO Q12H [facility] Last Admin: 07/16/20 08:06 Dose: 500 mg Documented by: Potassium Chloride (Potassium Chloride 20 Meq Tab.Er) 60 meq PO TID [facility] Last Admin: 07/16/20 08:23 Dose: 60 meq Documented by: Prednisone (Prednisone 10 Mg Tab) 10 mg PO DAILY [facility] Stop: 07/17/20 08:01 Last Admin: 07/16/20 09:41 Dose: 10 mg Documented by: Sodium Chloride (Sodium Chloride 0.9% 10 Ml Syringe) 10 ml FLUSH ASDIRECTED PRN PRN Reason: Keep Vein Open Last Admin: 07/16/20 09:28 Dose: 10 ml Documented by: Discontinued Medications Ciprofloxacin (Ciprofloxacin 500 Mg Tab) 500 mg PO ONETIME ONE Stop: 07/14/20 13:03 Last Admin: 07/14/20 13:19 Dose: 500 mg Documented by: Heparin Sodium (Porcine) (Heparin Sodium 5,000 Units/Ml Vial) Confirm Ad ministered Dose 5,000 units .ROUTE .STK-MED ONE Stop: 07/15/20 08:16 Last Admin: 07/15/20 08:21 Dose: Not Given Documented by: Sodium Chloride (Normal Saline) 1,000 mls @ 500 mls/hr IV ASDIRECTED [facility] Last Admin: 07/14/20 10:37 Dose: 500 mls/hr Documented by: Potassium Chloride 10 meq/ (Premix) 50 mls @ 50 mls/hr IV ONETIME ONE Stop: 07/14/20 12:37 Last Admin: 07/14/20 13:17 Dose: 50 mls/hr Documented by: Potassium Chloride 10 meq/ (Premix) 50 mls @ 50 mls/hr IV ONETIME ONE Stop: 07/16/20 09:55 Last Admin: 07/16/20 09:24 Dose: 50 mls/hr Documented by: Potassium Chloride (Kcl In Water 10 Meq/50 Ml) Confirm Administered Dose 50 mls @ as directed .ROUTE .STK-MED ONE Stop: 07/16/20 09:09 Last Admin: 07/16/20 09:25 Dose: Not Given Documented by: Methylprednisolone Sodium Succinate (Methylprednisolone Sodium Succinate 40 Mg/1 Ml Sdv) 40 mg IVPUSH ONETIME ONE Stop: 07/14/20 13:02 Last Admin: 07/14/20 13:15 Dose: 40 mg Documented by: Methylprednisolone Sodium Succinate (Methylprednisolone Sodium Succinate 40 Mg/1 Ml Sdv) Confirm Administered Dose 40 mg .ROUTE .STK-MED ONE Stop: 07/14/20 13:25 Last Admin: 07/14/20 13:18 Dose: Not Given Documented by: Methylprednisolone Sodium Succinate (Methylprednisolone Sodium Succinate 40 Mg/1 Ml Sdv) 40 mg IVPUSH ONETIME ONE Stop: 07/15/20 10:18 Last Admin: 07/15/20 10:46 Dose: 40 mg Documented by: Metronidazole (Metronidazole 500 Mg Tab) 500 mg PO ONETIME ONE Stop: 07/14/20 13:03 Last Admin: 07/14/20 13:08 Dose: 500 mg Documented by: Metronidazole (Metronidazole 500 Mg Tab) Confirm Administered Dose 500 mg .ROUTE .STK-MED ONE Stop: 07/14/20 13:19 Last Admin: 07/14/20 13:18 Dose: Not Given Documented by: - Exam Quality Assessment: DVT Prophylaxis General: Alert, Oriented, Cooperative, No Acute Distress HEENT: Pupils Equal Neck: Supple Lungs: Clear to Auscultation, Normal Respiratory Effort Cardiovascular: Regular Rate, Regular Rhythm GI/Abdominal Exam: Normal Bowel Sounds, Soft, Non-Tender, No Organomegaly Extremities: Normal Inspection, Normal Range of Motion, Non-Tender, No Pedal Edema Skin: Warm Neurological: No New Focal Deficit Psy/Mental Status: Alert, Normal Affect, Normal Mood - Patient Data Lab Results Last 24 hrs: Laboratory Results - last 24 hr 07/16/20 07/16/20 07/16/20 Range/Units 08:05 08:05 08:05 WBC 11.6 H (4.0-11.0) K/uL RBC 4.26 L (4.50-6.50) M/uL Hgb 12.3 L (13.0-18.0) g/dL Hct 36.9 L (40.0-54.0) % MCV 87 (76-96) fL MCH 28.9 (27.0-32.0) pg MCHC 33.3 (31.0-35.0) g/dL RDW 14.8 (11.0-16.0) % Plt Count 277 (150-400) K/uL MPV 10.7 H (6.0-10.0) fL Sodium 138 (136-145) mmol/L Potassium 2.8 L* (3.5-5.1) mmol/L Chloride 102 (98-107) mmol/L Carbon Dioxide 26.1 (21.0-32.0) mmol/L Anion Gap 12.7 (5.0-15.0) mmol/L BUN 51 H* D (8-26) mg/dL Creatinine 2.35 H (0.70-1.30) mg/dL Est Cr Clr Drug Dosing 25.02 mL/min Estimated GFR (MDRD) 27 L (>60) MLS/MIN BUN/Creatinine Ratio 21.7 (6-25) Glucose 135 H (74-100) mg/dL Calcium 8.5 (8.5-10.1) mg/dL C-Reactive Protein 79.5 H (0.0-3.0) mg/L Result Diagrams: 07/16/20 08:05 07/16/20 08:05 Bradley Results Last 24 hrs: Microbiology 07/15/20 08:29 MRSA Surveillance Culture - Final Nares, Unspecified NO MRSA ISOLATED 07/14/20 12:30 Aerobic Blood Culture - Preliminary Blood NO GROWTH AFTER 1 DAY Anaerobic Blood Culture - Preliminary NO GROWTH AFTER 1 DAY Sepsis Event Note - Evaluation Sepsis Screening Result: No Definite Risk - Focused Exam Vital Signs: Vital Signs Temp Pulse Pulse Resp BP BP Pulse Ox 07/16/20 08:06 52 L 141/44 H 07/16/20 08:05 141/44 H 07/16/20 08:00 36.3 C 58 L 20 144/41 H 97 07/16/20 07:58 141/44 H 07/16/20 04:00 35.9 C L 75 18 145/52 H 96 07/16/20 00:00 36.1 C 72 18 124/67 96 - Problem List & Annotations (1) CHF (congestive heart failure) SNOMED Code(s): 83707848 Code(s): I50.9 - HEART FAILURE, UNSPECIFIED Status: Acute Priority: Low Current Visit: No Qualifiers: Heart failure type: unspecified Heart failure chronicity: chronic Qualified Code(s): I50.9 - Heart failure, unspecified (2) Hypokalemia SNOMED Code(s): 67908781 Code(s): E87.6 - HYPOKALEMIA Status: Acute Priority: High Current Visit: Yes (3) Chronic renal disease SNOMED Code(s): 507591023 Code(s): N18.9 - CHRONIC KIDNEY DISEASE, UNSPECIFIED Status: Chronic Priority: High Current Visit: Yes Qualifiers: Chronic kidney disease stage: stage 4 (severe) Qualified Code(s): N18.4 - Chronic kidney disease, stage 4 (severe) (4) Gout attack SNOMED Code(s): 940766825 Code(s): M10.9 - GOUT, UNSPECIFIED Status: Acute Priority: High Current Visit: Yes Qualifiers: Gout site: hand Encounter type: initial encounter Laterality: left Annotation/Comment:: 04/29/17 - Gout (5) Dehydration, moderate SNOMED Code(s): 7028999196127 Code(s): E86.0 - DEHYDRATION Status: Acute Priority: Medium Current Visit: Yes (6) Enteritis SNOMED Code(s): 47998759 Code(s): K52.9 - NONINFECTIVE GASTROENTERITIS AND COLITIS, UNSPECIFIED Status: Acute Priority: Medium Current Visit: Yes (7) Leukocytosis SNOMED Code(s): 067980877, 621026542 Code(s): D72.829 - ELEVATED WHITE BLOOD CELL COUNT, UNSPECIFIED Status: Acute Priority: Medium Current Visit: Yes Qualifiers: Leukocytosis type: bandemia Qualified Code(s): D72.825 - Bandemia - Problem List Review Problem List Initiated/Reviewed/Updated: Yes - My Orders Last 24 Hours: My Active Orders 07/16/20 08:00 metOLazone [Zaroxolyn] 2.5 mg PO MoWeFr 07/16/20 09:20 OT Evaluation and Treatment [CONS] Routine PT Evaluation and Treatment [CONS] Routine 07/16/20 09:30 predniSONE 10 mg PO DAILY - Plan Plan:: 1- Dehydration 2/2 GI loss: Improved - will d/c IVF and will be encouraging PO intake. Close monitoring of Is/Os due to h/o CHF 2- Enteritis: unknown etiology, possible bacteria given left shift leukocytosis. Stool and Blood Cx pending. Continue Cipro and flagyl PO for 10 days total ( ends July 24). Monitor for kidney function/clearance. Will space out doses. 3- Acute gout flare up of left hand: prednisone 10mg to help with acute flare up. Avoiding Allopurinol due to CKD. 4- Hypokalemia: acute on chronic. Will replace as needed. Already on PO regimen. 5- h/o CHF: will continue to monitor Is/Os. Not currently in a flare up 6- CKD: acute on chronic kidney disease. Got worse with dehydration 2/2 GI loss. Will continue to monitor closely. Daily labs. 7- Resume rest of home meds as before 8- DVT ppx heparin 5k TID 9- Deconditioning: PT/OT consultation to help with ambulation
[2020-07-16] MEDS: Carvedilol 6.25 MG Tab PO SCH (19:43)
[2020-07-17] MEDS: Heparin Sodium 5,000 Units/ML Vial SUBCUT SCH ×3 (05:59→22:38)
[2020-07-17] MEDS: Potassium Chloride 20 MEQ Tab.ER PO SCH ×3 (07:47→19:28)
[2020-07-17] MEDS: Aspirin 81 MG Tab.EC PO SCH (07:48)
[2020-07-17] MEDS: metroNIDAZOLE 500 MG Tab PO SCH ×2 (07:48→19:28)
[2020-07-17] MEDS: Carvedilol 6.25 MG Tab PO SCH ×2 (07:48→19:28)
[2020-07-17] MEDS: Isosorbide Mononitrate 30 MG Tab.ER PO SCH (07:48)
[2020-07-17] MEDS: Ciprofloxacin 250 MG Tab PO SCH ×2 (07:48→19:28)
[2020-07-17] MEDS: Lisinopril 20 MG Tab PO SCH (07:48)
[2020-07-17] MEDS: predniSONE 10 MG Tab PO SCH (07:49)
[2020-07-17] MEDS: Sodium Chloride 0.9% 10 ML Syringe FLUSH PRN (07:52)
[2020-07-17] MEDS ORDERED: Potassium Chloride Riders 10 MEQ in Premix Bag 1 BAG IV ONE (09:57)
[2020-07-17] MEDS: Furosemide 40 MG Tab PO SCH (09:59)
--- NOTE | 2020-07-17 10:04 | PCM.PN ---
- General Info Date of Service: 07/17/20 Admission Dx/Problem (Free Text): Admission Diagnosis/Problem Admission Diagnosis/Problem Dehydration Subjective Update: reports feeling better. Diarrhea has improved. hand pain has improved as well/ Functional Status: Reports: Pain Controlled, Tolerating Diet, Ambulating, Urinating, New Symptoms, Incentive Spirometry - Review of Systems General: Reports: No Symptoms HEENT: Reports: No Symptoms Pulmonary: Reports: No Symptoms Cardiovascular: Reports: No Symptoms Gastrointestinal: Reports: No Symptoms Genitourinary: Reports: No Symptoms Musculoskeletal: Reports: No Symptoms Skin: Reports: No Symptoms Neurological: Reports: No Symptoms - Patient Data Vitals - Most Recent: Last Vital Signs Temp 36.7 C 07/17/20 08:00 Pulse 56 L 07/17/20 08:00 Resp 18 07/17/20 08:00 BP 153/68 H 07/17/20 08:00 Pulse Ox 94 L 07/17/20 08:00 Weight - Most Recent: 88.36 kg I&O - Last 24 Hours: Intake & Output 07/16/20 07/17/20 07/17/20 22:59 06:59 14:59 Intake Total 2140 500 Output Total 1000 500 Balance 1140 0 Lab Results Last 24 Hours: Laboratory Results - last 24 hr 07/17/20 07/17/20 Range/Units 08:35 08:35 WBC 9.3 (4.0-11.0) K/uL RBC 4.56 (4.50-6.50) M/uL Hgb 13.1 (13.0-18.0) g/dL Hct 39.5 L (40.0-54.0) % MCV 87 (76-96) fL MCH 28.7 (27.0-32.0) pg MCHC 33.2 (31.0-35.0) g/dL RDW 14.7 (11.0-16.0) % Plt Count 282 (150-400) K/uL MPV 10.6 H (6.0-10.0) fL Sodium 141 (136-145) mmol/L Potassium 3.0 L (3.5-5.1) mmol/L Chloride 103 (98-107) mmol/L Carbon Dioxide 27.5 (21.0-32.0) mmol/L Anion Gap 13.5 (5.0-15.0) mmol/L BUN 49 H (8-26) mg/dL Creatinine 2.40 H (0.70-1.30) mg/dL Est Cr Clr Drug Dosing 1.92 mL/min Estimated GFR (MDRD) 26 L (>60) MLS/MIN BUN/Creatinine Ratio 20.4 (6-25) Glucose 155 H (74-100) mg/dL Calcium 8.7 (8.5-10.1) mg/dL C-Reactive Protein 39.7 H (0.0-3.0) mg/L Bradley Results Last 24 Hours: Microbiology 07/14/20 12:30 Aerobic Blood Culture - Preliminary Blood NO GROWTH AFTER 2 DAYS Anaerobic Blood Culture - Preliminary NO GROWTH AFTER 2 DAYS 07/15/20 08:29 MRSA Surveillance Culture - Final Nares, Unspecified NO MRSA ISOLATED Med Orders - Current: Current Medications Acetaminophen (Acetaminophen 325 Mg Tab) 650 mg PO Q4H PRN PRN Reason: pain Aspirin (Aspirin 81 Mg Tab.Ec) 81 mg PO DAILY [facility] Last Admin: 07/17/20 07:48 Dose: 81 mg Documented by: Carvedilol (Carvedilol 6.25 Mg Tab) 6.25 mg PO BID [facility] Last Admin: 07/17/20 07:48 Dose: 6.25 mg Documented by: Ciprofloxacin (Ciprofloxacin 250 Mg Tab) 250 mg PO BID [facility] Last Admin: 07/17/20 07:48 Dose: 250 mg Documented by: Febuxostat (Febuxostat 80 Mg Tab) 80 mg PO DAILY [facility] Last Admin: 07/17/20 07:49 Dose: 80 mg Documented by: Furosemide (Furosemide 40 Mg Tab) 80 mg PO DAILY [facility] Last Admin: 07/16/20 08:04 Dose: 80 mg Documented by: Heparin Sodium (Porcine) (Heparin Sodium 5,000 Units/Ml Vial) 5,000 units SUBCUT Q8H [facility] Last Admin: 07/17/20 05:59 Dose: 5,000 units Documented by: Potassium Chloride 10 meq/ (Premix) 50 mls @ 100 mls/hr IV ONETIME ONE Stop: 07/17/20 10:26 Isosorbide Mononitrate (Isosorbide Mononitrate 30 Mg Tab.Er) 30 mg PO DAILY [facility] Last Admin: 07/17/20 07:48 Dose: 30 mg Documented by: Lisinopril (Lisinopril 20 Mg Tab) 20 mg PO DAILY [facility] Last Admin: 07/17/20 07:48 Dose: 20 mg Documented by: Metolazone (Metolazone 5 Mg Tab) 2.5 mg PO MoWeFr [facility] Last Admin: 07/16/20 08:25 Dose: 2.5 mg Documented by: Metronidazole (Metronidazole 500 Mg Tab) 500 mg PO Q12H [facility] Last Admin: 07/17/20 07:48 Dose: 500 mg Documented by: Potassium Chloride (Potassium Chloride 20 Meq Tab.Er) 60 meq PO TID [facility] Last Admin: 07/17/20 07:47 Dose: 60 meq Documented by: Sodium Chloride (Sodium Chloride 0.9% 10 Ml Syringe) 10 ml FLUSH ASDIRECTED PRN PRN Reason: Keep Vein Open Last Admin: 07/17/20 07:52 Dose: 10 ml Documented by: Discontinued Medications Carvedilol (Carvedilol 25 Mg Tab) 12.5 mg PO BIDMEALS [facility] Last Admin: 07/16/20 08:06 Dose: 12.5 mg Documented by: Ciprofloxacin (Ciprofloxacin 500 Mg Tab) 500 mg PO ONETIME ONE Stop: 07/14/20 13:03 Last Admin: 07/14/20 13:19 Dose: 500 mg Documented by: Heparin Sodium (Porcine) (Heparin Sodium 5,000 Units/Ml Vial) Confirm Administered Dose 5,000 units .ROUTE .STK-MED ONE Stop: 07/15/20 08:16 Last Admin: 07/15/20 08:21 Dose: Not Given Documented by: Sodium Chloride (Normal Saline) 1,000 mls @ 500 mls/hr IV ASDIRECTED [facility] Last Admin: 07/14/20 10:37 Dose: 500 mls/hr Documented by: Potassium Chloride 10 meq/ (Premix) 50 mls @ 50 mls/hr IV ONETIME ONE Stop: 07/14/20 12:37 Last Admin: 07/14/20 13:17 Dose: 50 mls/hr Documented by: Lactated Ringer's (Ringers, Lactated) 1,000 mls @ 150 mls/hr IV ASDIRECTED [facility] Last Admin: 07/15/20 10:00 Dose: 150 mls/hr Documented by: Potassium Chloride 10 meq/ (Premix) 50 mls @ 50 mls/hr IV ONETIME ONE Stop: 07/16/20 09:55 Last Admin: 07/16/20 09:24 Dose: 50 mls/hr Documented by: Potassium Chloride (Kcl In Water 10 Meq/50 Ml) Confirm Administered Dose 50 mls @ as directed .ROUTE .STK-MED ONE Stop: 07/16/20 09:09 Last Admin: 07/16/20 09:25 Dose: Not Given Documented by: Methylprednisolone Sodium Succinate (Methylprednisolone Sodium Succinate 40 Mg/1 Ml Sdv) 40 mg IVPUSH ONETIME ONE Stop: 07/14/20 13:02 Last Admin: 07/14/20 13:15 Dose: 40 mg Documented by: Methylprednisolone Sodium Succinate (Methylprednisolone Sodium Succinate 40 Mg/1 Ml Sdv) Confirm Administered Dose 40 mg .ROUTE .STK-MED ONE Stop: 07/14/20 13:25 Last Admin: 07/14/20 13:18 Dose: Not Given Documented by: Methylprednisolone Sodium Succinate (Methylprednisolone Sodium Succinate 40 Mg/1 Ml Sdv) 40 mg IVPUSH ONETIME ONE Stop: 07/15/20 10:18 Last Admin: 07/15/20 10:46 Dose: 40 mg Documented by: Metronidazole (Metronidazole 500 Mg Tab) 500 mg PO ONETIME ONE Stop: 07/14/20 13:03 Last Admin: 07/14/20 13:08 Dose: 500 mg Documented by: Metronidazole (Metronidazole 500 Mg Tab) Confirm Administered Dose 500 mg .ROUTE .STK-MED ONE Stop: 07/14/20 13:19 Last Admin: 07/14/20 13:18 Dose: Not Given Documented by: Prednisone (Prednisone 10 Mg Tab) 10 mg PO DAILY [facility] Stop: 07/17/20 08:01 Last Admin: 07/17/20 07:49 Dose: 10 mg Documented by: - Exam Quality Assessment: DVT Prophylaxis General: Alert, Oriented, Cooperative HEENT: Pupils Equal Lungs: Clear to Auscultation Cardiovascular: Regular Rate, Regular Rhythm GI/Abdominal Exam: Normal Bowel Sounds, Soft, Non-Tender Extremities: Normal Inspection, No Pedal Edema Neurological: No New Focal Deficit Psy/Mental Status: Alert, Normal Affect, Normal Mood - Patient Data Lab Results Last 24 hrs: Laboratory Results - last 24 hr 07/17/20 07/17/20 Range/Units 08:35 08:35 WBC 9.3 (4.0-11.0) K/uL RBC 4.56 (4.50-6.50) M/uL Hgb 13.1 (13.0-18.0) g/dL Hct 39.5 L (40.0-54.0) % MCV 87 (76-96) fL MCH 28.7 (27.0-32.0) pg MCHC 33.2 (31.0-35.0) g/dL RDW 14.7 (11.0-16.0) % Plt Count 282 (150-400) K/uL MPV 10.6 H (6.0-10.0) fL Sodium 141 (136-145) mmol/L Potassium 3.0 L (3.5-5.1) mmol/L Chloride 103 (98-107) mmol/L Carbon Dioxide 27.5 (21.0-32.0) mmol/L Anion Gap 13.5 (5.0-15.0) mmol/L BUN 49 H (8-26) mg/dL Creatinine 2.40 H (0.70-1.30) mg/dL Est Cr Clr Drug Dosing 1.92 mL/min Estimated GFR (MDRD) 26 L (>60) MLS/MIN BUN/Creatinine Ratio 20.4 (6-25) Glucose 155 H (74-100) mg/dL Calcium 8.7 (8.5-10.1) mg/dL C-Reactive Protein 39.7 H (0.0-3.0) mg/L Result Diagrams: 07/17/20 08:35 07/17/20 08:35 Bradley Results Last 24 hrs: Microbiology 07/14/20 12:30 Aerobic Blood Culture - Preliminary Blood NO GROWTH AFTER 2 DAYS Anaerobic Blood Culture - Preliminary NO GROWTH AFTER 2 DAYS 07/15/20 08:29 MRSA Surveillance Culture - Final Nares, Unspecified NO MRSA ISOLATED Sepsis Event Note - Evaluation Sepsis Screening Result: No Definite Risk - Focused Exam Vital Signs: Vital Signs Temp Temp Pulse Pulse Resp BP BP 07/17/20 08:00 36.7 C 56 L 18 153/68 H 07/17/20 07:48 56 L 153/68 H 07/17/20 04:00 36.1 C 58 L 16 132/70 07/17/20 00:03 36.2 C 63 16 144/60 H Pulse Ox 07/17/20 08:00 94 L 07/17/20 07:48 07/17/20 04:00 98 07/17/20 00:03 98 - Problem List & Annotations (1) CHF (congestive heart failure) SNOMED Code(s): 75377307 Code(s): I50.9 - HEART FAILURE, UNSPECIFIED Status: Acute Priority: Low Current Visit: No Qualifiers: Heart failure type: unspecified Heart failure chronicity: chronic Qualified Code(s): I50.9 - Heart failure, unspecified (2) Hypokalemia SNOMED Code(s): 12541068 Code(s): E87.6 - HYPOKALEMIA Status: Acute Priority: High Current Visit: Yes (3) Chronic renal disease SNOMED Code(s): 727015248 Code(s): N18.9 - CHRONIC KIDNEY DISEASE, UNSPECIFIED Status: Chronic Priority: High Current Visit: Yes Qualifiers: Chronic kidney disease stage: stage 4 (severe) Qualified Code(s): N18.4 - Chronic kidney disease, stage 4 (severe) (4) Gout attack SNOMED Code(s): 070417693 Code(s): M10.9 - GOUT, UNSPECIFIED Status: Acute Priority: High Current Visit: Yes Qualifiers: Gout site: hand Encounter type: initial encounter Laterality: left Annotation/Comment:: 04/29/17 - Gout (5) Dehydration, moderate SNOMED Code(s): 6507013252928 Code(s): E86.0 - DEHYDRATION Status: Acute Priority: Medium Current Visit: Yes (6) Enteritis SNOMED Code(s): 44801186 Code(s): K52.9 - NONINFECTIVE GASTROENTERITIS AND COLITIS, UNSPECIFIED Status: Acute Priority: Medium Current Visit: Yes (7) Leukocytosis SNOMED Code(s): 161588350, 262454745 Code(s): D72.829 - ELEVATED WHITE BLOOD CELL COUNT, UNSPECIFIED Status: Acute Priority: Medium Current Visit: Yes Qualifiers: Leukocytosis type: bandemia Qualified Code(s): D72.825 - Bandemia - Problem List Review Problem List Initiated/Reviewed/Updated: Yes - My Orders Last 24 Hours: My Active Orders 07/16/20 09:20 OT Evaluation and Treatment [CONS] Routine PT Evaluation and Treatment [CONS] Routine 07/16/20 15:05 EKG 12 Lead [EK] Routine 07/16/20 20:00 carvediloL [Coreg] 6.25 mg PO BID 07/17/20 09:57 Potassium Chloride Riders [KCl in Water 10 MEQ/50 ML] 10 meq Premix Bag 1 bag IV ONETIME - Plan Plan:: 1- Dehydration 2/2 GI loss: Improved - will d/c IVF and will be encouraging PO intake. Close monitoring of Is/Os due to h/o CHF 2- Enteritis: unknown etiology, possible bacteria given left shift leukocytosis. Stool and Blood Cx pending. Continue Cipro and flagyl PO for 10 days total ( ends July 24). Monitor for kidney function/clearance. Will space out doses. 3- Acute gout flare up of left hand: prednisone 10mg to help with acute flare up. Avoiding Allopurinol due to CKD. 4- Hypokalemia: acute on chronic. Will replace as needed. Already on PO regimen. 5- h/o CHF: will continue to monitor Is/Os. Not currently in a flare up 6- CKD: acute on chronic kidney disease. Got worse with dehydration 2/2 GI loss. Will continue to monitor closely. Daily labs. 7- Resume rest of home meds as before 8- DVT ppx heparin 5k TID 9- Deconditioning: PT/OT consultation to help with ambulation
[2020-07-17] MEDS ORDERED: Potassium Chloride Riders 50 ML ONE (10:38)
[2020-07-18] MEDS: Heparin Sodium 5,000 Units/ML Vial SUBCUT SCH ×3 (05:57→21:30)
[2020-07-18] MEDS: Isosorbide Mononitrate 30 MG Tab.ER PO SCH (07:31)
[2020-07-18] MEDS: metroNIDAZOLE 500 MG Tab PO SCH ×2 (07:32→21:00)
[2020-07-18] MEDS: Potassium Chloride 20 MEQ Tab.ER PO SCH ×3 (07:32→19:39)
[2020-07-18] MEDS: Ciprofloxacin 250 MG Tab PO SCH ×2 (07:32→19:38)
[2020-07-18] MEDS: Aspirin 81 MG Tab.EC PO SCH (07:32)
[2020-07-18] MEDS: Carvedilol 6.25 MG Tab PO SCH ×2 (07:32→19:38)
[2020-07-18] MEDS: Furosemide 40 MG Tab PO SCH (07:33)
[2020-07-18] MEDS: Lisinopril 20 MG Tab PO SCH (07:33)
[2020-07-18] MEDS: Sodium Chloride 0.9% 10 ML Syringe FLUSH PRN (07:34)
[2020-07-18] MEDS ORDERED: Pantoprazole 40 MG Delayed-Release Granules 1 Packet PO STA (11:05)
[2020-07-18] MEDS ORDERED: predniSONE 20 MG Tab PO SCH (11:05)
--- NOTE | 2020-07-18 11:18 | PCM.PN ---
- General Info Date of Service: 07/18/20 Admission Dx/Problem (Free Text): Admission Diagnosis/Problem Admission Diagnosis/Problem Dehydration Subjective Update: reports feeling better. Diarrhea has improved. hand pain has improved as well/ Functional Status: Reports: Pain Controlled, Tolerating Diet, Ambulating, Urinating, New Symptoms, Incentive Spirometry - Review of Systems General: Reports: No Symptoms HEENT: Reports: No Symptoms Pulmonary: Reports: No Symptoms Cardiovascular: Reports: No Symptoms Gastrointestinal: Reports: No Symptoms Musculoskeletal: Reports: Joint Pain Neurological: Reports: No Symptoms Psychiatric: Reports: No Symptoms - Patient Data Vitals - Most Recent: Last Vital Signs Temp 36.2 C 07/18/20 08:00 Pulse 57 L 07/18/20 08:00 Resp 18 07/18/20 08:00 BP 170/63 H 07/18/20 08:00 Pulse Ox 97 07/18/20 08:00 Weight - Most Recent: 89.947 kg I&O - Last 24 Hours: Intake & Output 07/17/20 07/18/20 07/18/20 22:59 06:59 14:59 Intake Total 1500 680 Output Total 1400 500 Balance 100 180 Lab Results Last 24 Hours: Laboratory Results - last 24 hr 07/18/20 07/18/20 Range/Units 10:10 10:10 WBC 8.5 (4.0-11.0) K/uL RBC 4.74 (4.50-6.50) M/uL Hgb 13.6 (13.0-18.0) g/dL Hct 40.7 (40.0-54.0) % MCV 86 (76-96) fL MCH 28.7 (27.0-32.0) pg MCHC 33.4 (31.0-35.0) g/dL RDW 14.9 (11.0-16.0) % Plt Count 307 (150-400) K/uL MPV 10.6 H (6.0-10.0) fL Sodium 140 (136-145) mmol/L Potassium 2.7 L* (3.5-5.1) mmol/L Chloride 102 (98-107) mmol/L Carbon Dioxide 26.8 (21.0-32.0) mmol/L Anion Gap 13.9 (5.0-15.0) mmol/L BUN 44 H (8-26) mg/dL Creatinine 2.27 H (0.70-1.30) mg/dL Est Cr Clr Drug Dosing 25.91 mL/min Estimated GFR (MDRD) 28 L (>60) MLS/MIN BUN/Creatinine Ratio 19.4 (6-25) Glucose 165 H (74-100) mg/dL Calcium 8.5 (8.5-10.1) mg/dL [facility] Results Last 24 Hours: Microbiology 07/14/20 12:30 Aerobic Blood Culture - Preliminary Blood NO GROWTH AFTER 3 DAYS Anaerobic Blood Culture - Preliminary NO GROWTH AFTER 3 DAYS Med Orders - Current: Current Medications Acetaminophen (Acetaminophen 325 Mg Tab) 650 mg PO Q4H PRN PRN Reason: pain Aspirin (Aspirin 81 Mg Tab.Ec) [address] [facility] Last Admin: 07/18/20 07:32 Dose: 81 mg Documented by: Carvedilol (Carvedilol 6.25 Mg Tab) 6.[address] [facility] Last Admin: 07/18/20 07:32 Dose: 6.25 mg Documented by: Ciprofloxacin (Ciprofloxacin 250 Mg Tab) [address] [facility] Last Admin: 07/18/20 07:32 Dose: 250 mg Documented by: Febuxostat (Febuxostat 80 Mg Tab) [address] [facility] Last Admin: 07/18/20 07:31 Dose: 80 mg Documented by: Furosemide (Furosemide 40 Mg Tab) [address] [facility] Last Admin: 07/18/20 07:33 Dose: 80 mg Documented by: Heparin Sodium (Porcine) (Heparin Sodium 5,000 Units/Ml Vial) 5,[address] [facility] Last Admin: 07/18/20 05:57 Dose: 5,000 units Documented by: Isosorbide Mononitrate (Isosorbide Mononitrate 30 Mg Tab.Er) [address] [facility] Last Admin: 07/18/20 07:31 Dose: 30 mg Documented by: Lisinopril (Lisinopril 20 Mg Tab) [address] [facility] Last Admin: 07/18/20 07:33 Dose: 20 mg Documented by: Metolazone (Metolazone 5 Mg Tab) 2.[address] [facility] Last Admin: 07/16/20 08:25 Dose: 2.5 mg Documented by: Metronidazole (Metronidazole 500 Mg Tab) [address] [facility] Last Admin: 07/18/20 07:32 Dose: 500 mg Documented by: Pantoprazole Sodium (Pantoprazole 40 Mg Delayed-Release Granules 1 Packet) [address] [facility] Potassium Chloride (Potassium Chloride 20 Meq Tab.Er) [address] [facility] Prednisone (Prednisone 20 Mg Tab) [address] [facility] Sodium Chloride (Sodium Chloride 0.9% 10 Ml Syringe) 10 ml FLUSH ASDIRECTED PRN PRN Reason: Keep Vein Open Last Admin: 07/18/20 07:34 Dose: 10 ml Documented by: Discontinued Medications Carvedilol (Carvedilol 25 Mg Tab) 12.[address] [facility] Last Admin: 07/16/20 08:06 Dose: 12.5 mg Documented by: Ciprofloxacin (Ciprofloxacin 500 Mg Tab) 500 mg PO ONETIME ONE Stop: 07/14/20 13:03 Last Admin: 07/14/20 13:19 Dose: 500 mg Documented by: Heparin Sodium (Porcine) (Heparin Sodium 5,000 Units/Ml Vial) Confirm Administered Dose 5,000 units .ROUTE .STK-MED ONE Stop: 07/15/20 08:16 Last Admin: 07/15/20 08:21 Dose: Not Given Documented by: Sodium Chloride (Normal Saline) 1,000 mls @ 500 mls/hr IV ASDIRECTED [facility] Last Admin: 07/14/20 10:37 Dose: 500 mls/hr Documented by: Potassium Chloride 10 meq/ (Premix) 50 mls @ 50 mls/hr IV ONETIME ONE Stop: 07/14/20 12:37 Last Admin: 07/14/20 13:17 Dose: 50 mls/hr Documented by: Lactated Ringer's (Ringers, Lactated) 1,000 mls @ 150 mls/hr IV ASDIRECTED [facility] Last Admin: 07/15/20 10:00 Dose: 150 mls/hr Documented by: Potassium Chloride 10 meq/ (Premix) 50 mls @ 50 mls/hr IV ONETIME ONE Stop: 07/16/20 09:55 Last Admin: 07/16/20 09:24 Dose: 50 mls/hr Documented by: Potassium Chloride (Kcl In Water 10 Meq/50 Ml) Confirm Administered Dose 50 mls @ as directed .ROUTE .STK-MED ONE Stop: 07/16/20 09:09 Last Admin: 07/16/20 09:25 Dose: Not Given Documented by: Potassium Chloride 10 meq/ (Premix) 50 mls @ 50 mls/hr IV ONETIME ONE Stop: 07/17/20 10:56 Last Admin: 07/17/20 10:47 Dose: 50 mls/hr Documented by: Potassium Chloride (Kcl In Water 10 Meq/50 Ml) Confirm Administered Dose 50 mls @ as directed .ROUTE .STK-MED ONE Stop: 07/17/20 10:39 Last Admin: 07/17/20 11:47 Dose: Not Given Documented by: Methylprednisolone Sodium Succinate (Methylprednisolone Sodium Succinate 40 Mg/1 Ml Sdv) 40 mg IVPUSH ONETIME ONE Stop: 07/14/20 13:02 Last Admin: 07/14/20 13:15 Dose: 40 mg Documented by: Methylprednisolone Sodium Succinate (Methylprednisolone Sodium Succinate 40 Mg/1 Ml Sdv) Confirm Administered Dose 40 mg .ROUTE .STK-MED ONE Stop: 07/14/20 13:25 Last Admin: 07/14/20 13:18 Dose: Not Given Documented by: Methylprednisolone Sodium Succinate (Methylprednisolone Sodium Succinate 40 Mg/1 Ml Sdv) 40 mg IVPUSH ONETIME ONE Stop: 07/15/20 10:18 Last Admin: 07/15/20 10:46 Dose: 40 mg Documented by: Metronidazole (Metronidazole 500 Mg Tab) 500 mg PO ONETIME ONE Stop: 07/14/20 13:03 Last Admin: 07/14/20 13:08 Dose: 500 mg Documented by: Metronidazole (Metronidazole 500 Mg Tab) Confirm Administered Dose 500 mg .ROUTE .STK-MED ONE Stop: 07/14/20 13:19 Last Admin: 07/14/20 13:18 Dose: Not Given Documented by: Pantoprazole Sodium (Pantoprazole 40 Mg Delayed-Release Granules 1 Packet) 20 mg PO NOW STA Stop: 07/18/20 11:06 Potassium Chloride (Potassium Chloride 20 Meq Tab.Er) [address] [facility] Last Admin: 07/18/20 07:32 Dose: 60 meq Documented by: Prednisone (Prednisone 10 Mg Tab) 10 mg PO DAILY [facility] Stop: 07/17/20 08:01 Last Admin: 07/17/20 07:49 Dose: 10 mg Documented by: - Exam Quality Assessment: DVT Prophylaxis General: Alert, Oriented, Cooperative, No Acute Distress HEENT: Pupils Equal Lungs: Clear to Auscultation Cardiovascular: Regular Rate GI/Abdominal Exam: Normal Bowel Sounds, Soft, Non-Tender, No Distention Extremities: Normal Inspection, Normal Range of Motion, Non-Tender - Patient Data Lab Results Last 24 hrs: Laboratory Results - last 24 hr 07/18/20 07/18/20 Range/Units 10:10 10:10 WBC 8.5 (4.0-11.0) K/uL RBC 4.74 (4.50-6.50) M/uL Hgb 13.6 (13.0-18.0) g/dL Hct 40.7 (40.0-54.0) % MCV 86 (76-96) fL MCH 28.7 (27.0-32.0) pg MCHC 33.4 (31.0-35.0) g/dL RDW 14.9 (11.0-16.0) % Plt Count 307 (150-400) K/uL MPV 10.6 H (6.0-10.0) fL Sodium 140 (136-145) mmol/L Potassium 2.7 L* (3.5-5.1) mmol/L Chloride 102 (98-107) mmol/L Carbon Dioxide 26.8 (21.0-32.0) mmol/L Anion Gap 13.9 (5.0-15.0) mmol/L BUN 44 H (8-26) mg/dL Creatinine 2.27 H (0.70-1.30) mg/dL Est Cr Clr Drug Dosing 25.91 mL/min Estimated GFR (MDRD) 28 L (>60) MLS/MIN BUN/Creatinine Ratio 19.4 (6-25) Glucose 165 H (74-100) mg/dL Calcium 8.5 (8.5-10.1) mg/dL Result Diagrams: 07/18/20 10:10 07/18/20 10:10 [place] Results Last 24 hrs: Microbiology 07/14/20 12:30 Aerobic Blood Culture - Preliminary Blood NO GROWTH AFTER 3 DAYS Anaerobic Blood Culture - Preliminary NO GROWTH AFTER 3 DAYS Sepsis Event Note - Evaluation Sepsis Screening Result: No Definite Risk - Focused Exam Vital Signs: Vital Signs Temp Pulse Pulse Resp BP BP Pulse Ox 07/18/20 08:00 36.2 C 57 L 18 170/63 H 97 07/18/20 07:33 170/63 H 07/18/20 07:32 57 L 170/63 H 07/18/20 07:31 170/63 H 07/18/20 04:35 36.2 C 60 16 148/80 H 98 07/18/20 00:00 36.2 C 64 16 142/76 H 97 - Problem List & Annotations (1) CHF (congestive heart failure) SNOMED Code(s): 23026995 Code(s): I50.9 - HEART FAILURE, UNSPECIFIED Status: Acute Priority: Low Current Visit: No Qualifiers: Heart failure type: unspecified Heart failure chronicity: chronic Qualified Code(s): I50.9 - Heart failure, unspecified (2) Hypokalemia SNOMED Code(s): 36089162 Code(s): E87.6 - HYPOKALEMIA Status: Acute Priority: High Current Visit: Yes (3) Chronic renal disease SNOMED Code(s): 602200311 Code(s): N18.9 - CHRONIC KIDNEY DISEASE, UNSPECIFIED Status: Chronic Priority: High Current Visit: Yes Qualifiers: Chronic kidney disease stage: stage 4 (severe) Qualified Code(s): N18.4 - Chronic kidney disease, stage 4 (severe) (4) Gout attack SNOMED Code(s): 487926683 Code(s): M10.9 - GOUT, UNSPECIFIED Status: Acute Priority: High Current Visit: Yes Qualifiers: Gout site: hand Encounter type: initial encounter Laterality: left Annotation/Comment:: 04/29/17 - Gout (5) Dehydration, moderate SNOMED Code(s): 6342790094741 Code(s): E86.0 - DEHYDRATION Status: Acute Priority: Medium Current Visit: Yes (6) Enteritis SNOMED Code(s): 28778627 Code(s): K52.9 - NONINFECTIVE GASTROENTERITIS AND COLITIS, UNSPECIFIED Status: Acute Priority: Medium Current Visit: Yes (7) Leukocytosis SNOMED Code(s): 841247354, 604460015 Code(s): D72.829 - ELEVATED WHITE BLOOD CELL COUNT, UNSPECIFIED Status: Acute Priority: Medium Current Visit: Yes Qualifiers: Leukocytosis type: bandemia Qualified Code(s): D72.825 - Bandemia - Problem List Review Problem List Initiated/Reviewed/Updated: Yes - My Orders Last 24 Hours: My Active Orders 07/18/20 11:05 predniSONE 20 mg PO WITHBREAKFAST 07/18/20 14:00 Potassium Chloride [Klor-Con M20] 80 meq PO TID 07/18/20 20:00 Pantoprazole [ProTONIX Granules] 20 mg PO BEDTIME - Plan Plan:: 1- Dehydration 2/2 GI loss: Improved - IVF was d/cd on 07/16. encouraging PO intake. Close monitoring of Is/Os due to h/o CHF 2- Enteritis: unknown etiology, possible bacteria given left shift leukocytosis. Stool and Blood Cx ordered - no growth. Continue Cipro and Flagyl PO for 10 days total ( ends July 24). Monitor for kidney function/clearance. Will space out doses. 3- Acute gout flare up of left hand: prednisone 20mg to help with acute flare up. Avoiding Allopurinol due to CKD. 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 Will replace as needed. Already on PO regimen. 5- h/o CHF: will continue to monitor Is/Os. Not currently in a flare up. On lasix PO. 6- CKD: acute on chronic kidney disease. Got worse with dehydration 2/2 GI loss. Improved with hydration - back to baseline. Will continue to monitor closely. Daily labs. 7- Resume rest of home meds as before 8- DVT ppx heparin 5k TID 9- Deconditioning: PT/OT consultation to help with ambulation. possible d/c back home tomorrow
[2020-07-18] MEDS ORDERED: Pantoprazole 40 MG Tab.CR ONE (11:33)
[2020-07-18] MEDS: Pantoprazole 40 MG Tab.CR PO SCH (11:53)
[2020-07-18] MEDS ORDERED: Pantoprazole 40 MG Delayed-Release Granules 1 Packet PO SCH (20:00)
[2020-07-18] MEDS ORDERED: Carvedilol 3.125 MG Tab PO ONE (20:21)
[2020-07-19] MEDS: Heparin Sodium 5,000 Units/ML Vial SUBCUT SCH (06:00)
[2020-07-19] MEDS ORDERED: Pantoprazole 40 MG Tab.CR PO SCH (07:00)
[2020-07-19] MEDS: Pantoprazole 40 MG Tab.CR PO SCH (07:13)
[2020-07-19] MEDS: Furosemide 40 MG Tab PO SCH (07:30)
[2020-07-19] MEDS: Isosorbide Mononitrate 30 MG Tab.ER PO SCH (07:31)
[2020-07-19] MEDS: Potassium Chloride 20 MEQ Tab.ER PO SCH (07:31)
[2020-07-19] MEDS: Aspirin 81 MG Tab.EC PO SCH (07:31)
[2020-07-19] MEDS: Ciprofloxacin 250 MG Tab PO SCH (07:31)
[2020-07-19] MEDS: metroNIDAZOLE 500 MG Tab PO SCH (07:31)
[2020-07-19] MEDS: Lisinopril 20 MG Tab PO SCH (07:32)
[2020-07-19] MEDS: Metolazone 5 MG Tab PO SCH (07:35)
[2020-07-19] MEDS: Sodium Chloride 0.9% 10 ML Syringe FLUSH PRN (07:37)
[2020-07-19] MEDS ORDERED: predniSONE 20 MG Tab PO SCH (08:00)
[2020-07-19] MEDS ORDERED: Carvedilol 6.25 MG Tab PO SCH (08:00)
--- NOTE | 2020-07-19 12:04 | PCM.DCSUM1 ---
Discharge Summary - Hospital Course Brief History: was admitted to the facility for dehydration 2/2 GI loss/enteritis, and hypokalemia. Patient was also found to be in acute on CKD and gout flare-up left hand. Over night, patient was given gentle IVF hydration, and was started on PO cipro/flagyl. Diagnosis: Stroke: No - Discharge Data Discharge Date: 07/19/20 Discharge Disposition: Home, Self-Care 01 Condition: Good - Referral to Home Health Primary Care Physician: PCP None - Discharge Diagnosis/Problem(s) (1) CHF (congestive heart failure) SNOMED Code(s): 99633743 ICD Code: I50.9 - HEART FAILURE, UNSPECIFIED Status: Acute Priority: Low Current Visit: No Qualifiers: Heart failure type: unspecified Heart failure chronicity: chronic Qualified Code(s): I50.9 - Heart failure, unspecified (2) Hypokalemia SNOMED Code(s): 91600444 ICD Code: E87.6 - HYPOKALEMIA Status: Acute Priority: High Current Visit: Yes (3) Chronic renal disease SNOMED Code(s): 386303821 ICD Code: N18.9 - CHRONIC KIDNEY DISEASE, UNSPECIFIED Status: Chronic Priority: High Current Visit: Yes Qualifiers: Chronic kidney disease stage: stage 4 (severe) Qualified Code(s): N18.4 - Chronic kidney disease, stage 4 (severe) (4) Gout attack SNOMED Code(s): 804392274 ICD Code: M10.9 - GOUT, UNSPECIFIED Status: Acute Priority: High Current Visit: Yes Problem Details: 04/29/17 - Gout Qualifiers: Gout site: hand Encounter type: initial encounter Laterality: left (5) Dehydration, moderate SNOMED Code(s): 9672153282564 ICD Code: E86.0 - DEHYDRATION Status: Acute Priority: Medium Current Visit: Yes (6) Enteritis SNOMED Code(s): 35662758 ICD Code: K52.9 - NONINFECTIVE GASTROENTERITIS AND COLITIS, UNSPECIFIED Status: Acute Priority: Medium Current Visit: Yes (7) Leukocytosis SNOMED Code(s): 649341289, 947338357 ICD Code: D72.829 - ELEVATED WHITE BLOOD CELL COUNT, UNSPECIFIED Status: Acute Priority: Medium Current Visit: Yes Qualifiers: Leukocytosis type: bandemia Qualified Code(s): D72.825 - Bandemia - Patient Summary/Data Consults: Consultations 07/16/20 09:20 OT Evaluation and Treatment [CONS] Routine Please Evaluate and Treat. OT Reason for Consult: ADL's This query below is only for informational purposes and is not editable. Admission Diagnosis/Problem: Dehydration PT Evaluation and Treatment [CONS] Routine Please Evaluate and Treat. PT Reason for Consult: Ambulation This query below is only for informational purposes and is not editable. Admission Diagnosis/Problem: Dehydration Hospital Course: Enteritis - improved with PO Cipro and Flagyl IVF helped to correct his dehydration status and CYNDI Patient was also found to be severely hypokalemic - was given multiple doses of IV then switched to PO. Was able to respond to 80 meq TID. Also acute gout - responded well to uracil and po steroids. for deconditioning - OT/PT were consulted and he did well with therapy - Patient Instructions Diet: Heart Healthy Diet Activity: As Tolerated - Discharge Plan *PRESCRIPTION DRUG MONITORING PROGRAM REVIEWED*: No *COPY OF PRESCRIPTION DRUG MONITORING REPORT IN PATIENT KAREN: No Prescriptions/Med Rec: Lactobacillus Acidophilus [Acidophilus Lactobacilli] 1 each PO DAILY #30 capsule Ciprofloxacin [Ciprofloxacin HCl] 250 mg PO BID #6 tablet metroNIDAZOLE [Flagyl] 500 mg PO Q12H #10 tablet Potassium Chloride [Klor-Con M20] 80 meq PO TID #30 tab.er predniSONE 20 mg PO DAILY@0800 #7 tablet Pantoprazole [ProTONIX] 40 mg PO ACBREAKFAST #10 tab.cr Home Medications: Home Meds Ramipril 10 mg PO DAILY 03/04/16 [History] Isosorbide Mononitrate [Imdur] 30 mg PO DAILY tab.er 03/10/16 [Rx] Furosemide [Lasix] 80 mg PO DAILY 04/24/16 [History] carvediloL [Carvedilol] 12.5 mg PO BIDMEALS 12/10/16 [History] metOLazone [Metolazone] 2.5 mg PO ASDIRECTED 12/10/16 [History] Aspirin [Halfprin] 81 mg PO DAILY 07/14/20 [History] Febuxostat [Uloric] 80 mg PO DAILY 07/14/20 [History] Furosemide [Lasix] 40 mg PO TID 07/14/20 [History] Acetaminophen [Tylenol] 650 mg PO Q4H PRN tablet 07/19/20 [Rx] Ciprofloxacin [Ciprofloxacin HCl] 250 mg PO BID #6 tablet 07/19/20 [Rx] Lactobacillus Acidophilus [Acidophilus Lactobacilli] 1 each PO DAILY #30 capsule 07/19/20 [Rx] Pantoprazole [ProTONIX] 40 mg PO ACBREAKFAST #10 tab.cr 07/19/20 [Rx] Potassium Chloride [Klor-Con M20] 80 meq PO TID #30 tab.er 07/19/20 [Rx] lisinopriL [Prinivil] 20 mg PO DAILY tablet 07/19/20 [Rx] metOLazone [Zaroxolyn] 2.5 mg PO MoWeFr tablet 07/19/20 [Rx] metroNIDAZOLE [Flagyl] 500 mg PO Q12H #10 tablet 07/19/20 [Rx] predniSONE 20 mg PO DAILY@0800 #7 tablet 07/19/20 [Rx] Patient Handouts: Diarrhea, Adult, Gout, [id number], Heart Failure, Self Care, [id number] Forms: ED Department Discharge Referrals: PCP,None [Primary Care Provider] - - Discharge Summary/Plan Comment DC Time >30 min.: Yes - General Info Date of Service: 07/19/20 Admission Dx/Problem (Free Text: Admission Diagnosis/Problem Admission Diagnosis/Problem Dehydration Subjective Update: reports feeling better. Diarrhea has improved. hand pain has improved as well/ Functional Status: Reports: Pain Controlled, Tolerating Diet, Ambulating, Urinating, Incentive Spirometry - Review of Systems General: Reports: No Symptoms HEENT: Reports: No Symptoms Pulmonary: Reports: No Symptoms Cardiovascular: Reports: No Symptoms Gastrointestinal: Reports: No Symptoms Genitourinary: Reports: No Symptoms Neurological: Reports: No Symptoms Psychiatric: Reports: No Symptoms - Patient Data Vitals - Most Recent: Last Vital Signs Temp 36.2 C 07/19/20 06:04 Pulse 55 L 07/19/20 07:31 Resp 18 07/19/20 07:30 BP 171/65 H 07/19/20 07:32 Pulse Ox 96 07/19/20 07:30 Weight - Most Recent: 88.813 kg I&O - Last 24 hours: Intake & Output 07/18/20 07/19/20 07/19/20 22:59 06:59 14:59 Intake Total 1880 850 Output Total 750 Balance 1880 100 Lab Results - Last 24 hrs: Laboratory Results - last 24 hr 07/19/20 Range/Units 07:10 Sodium 139 (136-145) mmol/L Potassium 4.2 D (3.5-5.1) mmol/L Chloride 106 (98-107) mmol/L Carbon Dioxide 24.9 (21.0-32.0) mmol/L Anion Gap 12.3 (5.0-15.0) mmol/L BUN 46 H (8-26) mg/dL Creatinine 2.49 H (0.70-1.30) mg/dL Est Cr Clr Drug Dosing 23.62 mL/min Estimated GFR (MDRD) 25 L (>60) MLS/MIN BUN/Creatinine Ratio 18.5 (6-25) Glucose 120 H (74-100) mg/dL Calcium 8.6 (8.5-10.1) mg/dL GHASSAN Results - Last 24 hrs: Microbiology 07/14/20 12:30 Aerobic Blood Culture - Preliminary Blood NO GROWTH AFTER 4 DAYS Anaerobic Blood Culture - Preliminary NO GROWTH AFTER 4 DAYS Med Orders - Current: Current Medications Acetaminophen (Acetaminophen 325 Mg Tab) 650 mg PO Q4H PRN PRN Reason: pain Aspirin (Aspirin 81 Mg Tab.Ec) 81 mg PO DAILY [facility] Last Admin: 07/19/20 07:31 Dose: 81 mg Documented by: Carvedilol (Carvedilol 6.25 Mg Tab) 12.5 mg PO BIDMEALS [facility] Last Admin: 07/19/20 07:31 Dose: 12.5 mg Documented by: Ciprofloxacin (Ciprofloxacin 250 Mg Tab) 250 mg PO BID [facility] Last Admin: 07/19/20 07:31 Dose: 250 mg Documented by: Febuxostat (Febuxostat 80 Mg Tab) 80 mg PO DAILY [facility] Last Admin: 07/19/20 07:32 Dose: 80 mg Documented by: Furosemide (Furosemide 40 Mg Tab) 80 mg PO DAILY [facility] Last Admin: 07/19/20 07:30 Dose: 80 mg Documented by: Heparin Sodium (Porcine) (Heparin Sodium 5,000 Units/Ml Vial) 5,000 units SUBCUT Q8H [facility] Last Admin: 07/19/20 06:00 Dose: 5,000 units Documented by: Isosorbide Mononitrate (Isosorbide Mononitrate 30 Mg Tab.Er) 30 mg PO DAILY [facility] Last Admin: 07/19/20 07:31 Dose: 30 mg Documented by: Lisinopril (Lisinopril 20 Mg Tab) 20 mg PO DAILY [facility] Last Admin: 07/19/20 07:32 Dose: 20 mg Documented by: Metolazone (Metolazone 5 Mg Tab) 2.5 mg PO MoWeFr [facility] Last Admin: 07/19/20 07:35 Dose: 2.5 mg Documented by: Metronidazole (Metronidazole 500 Mg Tab) 500 mg PO Q12H [facility] Last Admin: 07/19/20 07:31 Dose: 500 mg Documented by: Pantoprazole Sodium (Pantoprazole 40 Mg Tab.Cr) 40 mg PO ACBREAKFAST [facility] Last Admin: 07/19/20 07:13 Dose: 40 mg Documented by: Potassium Chloride (Potassium Chloride 20 Meq Tab.Er) 80 meq PO TID [facility] Last Admin: 07/19/20 07:31 Dose: 80 meq Documented by: Prednisone (Prednisone 20 Mg Tab) 20 mg PO DAILY@0800 [facility] Last Admin: 07/19/20 07:32 Dose: 20 mg Documented by: Sodium Chloride (Sodium Chloride 0.9% 10 Ml Syringe) 10 ml FLUSH ASDIRECTED PRN PRN Reason: Keep Vein Open Last Admin: 07/19/20 07:37 Dose: 10 ml Documented by: Discontinued Medications Carvedilol (Carvedilol 25 Mg Tab) 12.5 mg PO BIDMEALS [facility] Last Admin: 07/16/20 08:06 Dose: 12.5 mg Documented by: Carvedilol (Carvedilol 6.25 Mg Tab) 6.25 mg PO BID [facility] Last Admin: 07/18/20 19:38 Dose: 6.25 mg Documented by: Carvedilol (Carvedilol 3.125 Mg Tab) 3.125 mg PO ONETIME ONE Stop: 07/18/20 20:22 Last Admin: 07/18/20 21:00 Dose: 3.125 mg Documented by: Ciprofloxacin (Ciprofloxacin 500 Mg Tab) 500 mg PO ONETIME ONE Stop: 07/14/20 13:03 Last Admin: 07/14/20 13:19 Dose: 500 mg Documented by: Heparin Sodium (Porcine) (Heparin Sodium 5,000 Units/Ml Vial) Confirm Administered Dose 5,000 units .ROUTE .STK-MED ONE Stop: 07/15/20 08:16 Last Admin: 07/15/20 08:21 Dose: Not Given Documented by: Sodium Chloride (Normal Saline) 1,000 mls @ 500 mls[facility]hr [facility] Admin: 07/14/20 10:37 Dose: 500 mls/hr Documented by: Potassium Chloride 10 meq/ (Premix) 50 mls @ 50 mls/hr IV ONETIME ONE Stop: 07/14/20 12:37 Last Admin: 07/14/20 13:17 Dose: 50 mls/hr Documented by: Lactated Ringer's (Ringers, Lactated) 1,000 mls @ 150 mls/hr IV ASDIRECTED [facility] Last Admin: 07/15/20 10:00 Dose: 150 mls/hr Documented by: Potassium Chloride 10 meq/ (Premix) 50 mls @ 50 mls/hr IV ONETIME ONE Stop: 07/16/20 09:55 Last Admin: 07/16/20 09:24 Dose: 50 mls/hr Documented by: Potassium Chloride (Kcl In Water 10 Meq/50 Ml) Confirm Administered Dose 50 mls @ as directed .ROUTE .STK-MED ONE Stop: 07/16/20 09:09 Last Admin: 07/16/20 09:25 Dose: Not Given Documented by: Potassium Chloride 10 meq/ (Premix) 50 mls @ 50 mls/hr IV ONETIME ONE Stop: 07/17/20 10:56 Last Admin: 07/17/20 10:47 Dose: 50 mls/hr Documented by: Potassium Chloride (Kcl In Water 10 Meq/50 Ml) Confirm Administered Dose 50 mls @ as directed .ROUTE .STK-MED ONE Stop: 07/17/20 10:39 Last Admin: 07/17/20 11:47 Dose: Not Given Documented by: Methylprednisolone Sodium Succinate (Methylprednisolone Sodium Succinate 40 Mg/1 Ml Sdv) 40 mg IVPUSH ONETIME ONE Stop: 07/14/20 13:02 Last Admin: 07/14/20 13:15 Dose: 40 mg Documented by: Methylprednisolone Sodium Succinate (Methylprednisolone Sodium Succinate 40 Mg/1 Ml Sdv) Confirm Administered Dose 40 mg .ROUTE .STK-MED ONE Stop: 07/14/20 13:25 Last Admin: 07/14/20 13:18 Dose: Not Given Documented by: Methylprednisolone Sodium Succinate (Methylprednisolone Sodium Succinate 40 Mg/1 Ml Sdv) 40 mg IVPUSH ONETIME ONE Stop: 07/15/20 10:18 Last Admin: 07/15/20 10:46 Dose: 40 mg Documented by: Metronidazole (Metronidazole 500 Mg Tab) 500 mg PO ONETIME ONE Stop: 07/14/20 13:03 Last Admin: 07/14/20 13:08 Dose: 500 mg Documented by: Metronidazole (Metronidazole 500 Mg Tab) Confirm Administered Dose 500 mg .ROUTE .STK-MED ONE Stop: 07/14/20 13:19 Last Admin: 07/14/20 13:18 Dose: Not Given Documented by: Pantoprazole Sodium (Pantoprazole 40 Mg Delayed-Release Granules 1 Packet) 20 mg PO BEDTIME CYNDI Pantoprazole Sodium (Pantoprazole 40 Mg Delayed-Release Granules 1 Packet) 20 mg PO NOW STA Stop: 07/18/20 11:06 Last Admin: 07/18/20 22:07 Dose: Not Given Documented by: Pantoprazole Sodium (Pantoprazole 40 Mg Tab.Cr) Confirm Administered Dose 40 mg .ROUTE .STK-MED ONE Stop: 07/18/20 11:34 Last Admin: 07/18/20 11:47 Dose: Not Given Documented by: Pantoprazole Sodium (Pantoprazole 40 Mg Tab.Cr) 40 mg PO ACBREAKFAST [facility] Potassium Chloride (Potassium Chloride 20 Meq Tab.Er) 60 meq PO TID [facility] Last Admin: 07/18/20 07:32 Dose: 60 meq Documented by: Prednisone (Prednisone 10 Mg Tab) 10 mg PO DAILY CYNDI Stop: 07/17/20 08:01 Last Admin: 07/17/20 07:49 Dose: 10 mg Documented by: Prednisone (Prednisone 20 Mg Tab) 20 mg PO WITHBREAKFAST [facility] Last Admin: 07/18/20 11:52 Dose: 20 mg Documented by: - Exam Quality Assessment: Reports: DVT Prophylaxis General: Reports: Alert, Oriented, Cooperative, No Acute Distress HEENT: Reports: Pupils Equal Lungs: Reports: Clear to Auscultation, Normal Respiratory Effort Cardiovascular: Reports: Regular Rate, Regular Rhythm GI/Abdominal Exam: Normal Bowel Sounds, Soft, Non-Tender Extremities: Normal Inspection, Normal Range of Motion, Non-Tender, No Pedal Edema Neurological: Reports: No New Focal Deficit Psy/Mental Status: Reports: Alert, Normal Affect, Normal Mood
[2020-07-19 12:18] VITALS: BP 156/82; PULSE 66
== END 2020-07-19 13:40 | disposition home or self-care (01) | DRG 392 ==
LOC: LB.ED 10:07 → LB.MS 13:30
PROVIDERS: ADMIT Surgery; ATTEND Surgery
DX: K52.9 Noninfective gastroenteritis and colitis, unspecified (principal); N18.4 Chronic kidney disease, stage 4 (severe); N17.9 Acute kidney failure, unspecified; E86.0 Dehydration; D72.829 Elevated white blood cell count, unspecified; E87.6 Hypokalemia; N18.9 Chronic kidney disease, unspecified; M10.9 Gout, unspecified; I50.9 Heart failure, unspecified; D72.825 Bandemia; Z79.82 Long term (current) use of aspirin; E11.22 Type 2 diabetes mellitus with diabetic chronic kidney disease; Z79.899 Other long term (current) drug therapy; Z79.52 Long term (current) use of systemic steroids; Z88.6 Allergy status to analgesic agent; Z88.5 Allergy status to narcotic agent; I25.10 Atherosclerotic heart disease of native coronary artery without angina pectoris; I25.2 Old myocardial infarction; Z95.5 Presence of coronary angioplasty implant and graft; Z86.73 Personal history of transient ischemic attack (TIA), and cerebral infarction without residual deficits; F32.9 Major depressive disorder, single episode, unspecified; E11.9 Type 2 diabetes mellitus without complications; Z98.49 Cataract extraction status, unspecified eye; Z96.649 Presence of unspecified artificial hip joint; R39.15 Urgency of urination; Z87.891 Personal history of nicotine dependence; M19.90 Unspecified osteoarthritis, unspecified site; Z20.822 Contact with and (suspected) exposure to COVID-19
CPT/HCPCS: 36415; 71045; 74176; 80048; 80053; 81001; 83735; 83880; 84100; 84550; 85025; 85027; 85610; 85651; 86140; 87040; 87045; 87046; 87427; 93005; 96374; 96375; 97161-GP; 97165-GO; 99285-25; A0425; A0429; A9270-GY; J1644; J2920; J3480; J7030; J7120; J7512; U0002